=== PATIENT | female | born 1955 | race Caucasian/White ===

== ENCOUNTER 2018-11-12 12:10 | Inpatient (IN) | payer BC, OTHER ==
[~2018-11-12] VITALS: Ht 162.6 cm; Wt 84.0 kg
[~2018-11-12 12:10] MED LIST: ALEN70TA5 PO; CLOP75TA27 PO; DIPH1TAB25 PO; DOCU-144 PO; DULO30CA45 PO; GABA-528 PO; GLIM2TAB PO; GLIM4TAB PO; GLUC15006 PO; LATA2.5D2 BOTH EYES; LINA5TAB PO; LISI-471 PO; LOPE2CAP PO; METF-480 PO; METO5TAB2 PO; MILN50TA PO; OMEP20CA16 PO; ONDA4TAB8 PO
[2018-11-12] MEDS ORDERED: GABA-528 PO (13:31)
[2018-11-12] MEDS ORDERED: LOSA50TA14 PO (13:31)
[2018-11-12] MEDS ORDERED: MILN50TA PO (13:32)
[2018-11-12] MEDS ORDERED: ROPIVACAINE 0.5 % 30 ML VIAL ONE ×2 (14:03→16:01)
[2018-11-12] MEDS ORDERED: THROMBIN 5000 UNIT VIAL ONE ×3 (14:03→16:02)
[2018-11-12] MEDS ORDERED: GELATIN SIZE 100 SPONGE ONE ×2 (14:03→16:02)
[2018-11-12] MEDS ORDERED: SURGIFOAM POWDER 1 GM KIT ONE ×2 (14:03→16:01)
[2018-11-12] MEDS ORDERED: POLYMYXIN/BACITRACIN 1L IRRIG ONE ×2 (14:03→16:01)
[2018-11-12 14:11] VITALS: Ht 162.6 cm; Wt 84.0 kg
[2018-11-12 14:21] VITALS: BP 123/72; PULSE 70; RESP 16
--- NOTE | 2018-11-12 15:31 | PREAC ---
Date/Time of Note Date/Time of Note DATE: 11/12/18 TIME: 15:29 Anesthesia Eval and Record Evaluation Time Pre-Procedure Interview DATE: 11/12/18 TIME: 15:29 Age 63 Sex female NPO: 8 hrs Preoperative diagnosis back pain, s/p fusion Planned procedure Removal of HW, Laminectomy Past Medical History Past Medical History: Includes Cardio: HTN, Dyslipidemia Endo: Diabetes GI: GERD, Morbid obesity Surgery & Anesthesia Issues No known issue Meds Anticoagulation: Yes Beta Bakari within 24 hr: No Reason Beta Bakari not given: Pt. not on B-Bakari Reported Medications Milnacipran Hcl (Savella) 50 Mg Tablet, 50 MG PO BID, TAB 11/12/18 Losartan Potassium* (Losartan Potassium*) 50 Mg Tablet, 50 MG PO DAILY, TAB 11/12/18 Gabapentin* (Gabapentin*) 800 Mg Tablet, 800 MG PO DAILY, #90 TAB 11/12/18 Clopidogrel Bisulfate (Clopidogrel) 75 Mg Tablet, 75 MG PO DAILY, #30 TAB 02/28/18 Latanoprost (Latanoprost) 2.5 Ml Drops, 1 DROP BOTH EYES QHS, #1 BOTTLE 02/28/18 Omeprazole* (Omeprazole*) 20 Mg Capsule.dr, 20 MG PO AC BREAKFAST, #30 CAP 02/28/18 Metformin* (Glucophage*) 850 Mg Tablet, 850 MG PO WITH BREAKFAST DINNE, #60 TAB 02/28/18 Discontinued Reported Medications Glucosamine Hcl (Glucosamine Hcl) 1,500 Mg Tablet, 1500 MG PO, TAB 04/10/18 Duloxetine Hcl* (Cymbalta*) 30 Mg Capsule.dr, 30 MG PO DAILY, CAP 04/10/18 Linagliptin (TRADJENTA) 5 Mg Tablet, 5 MG PO DAILY, TAB 02/28/18 Glimepiride* (Glimepiride*) 2 Mg Tablet, 2 MG PO QPM, TAB 02/28/18 Docusate Sodium* (Colace*) 100 Mg Capsule, 100 MG PO DAILY, #30 CAP 02/28/18 Alendronate Sodium* (Fosamax*) 70 Mg Tablet, 70 MG PO Q7D, #4 TAB 02/28/18 Milnacipran Hcl ([place]) 50 Mg Tablet, 50 MG PO BID, TAB 02/28/18 Glimepiride* (Glimepiride*) 4 Mg Tablet, 4 MG PO QAM, TAB 02/28/18 Gabapentin* (Gabapentin*) 800 Mg Tablet, 800 MG PO BID, #90 TAB 02/28/18 Lisinopril* (Lisinopril*) 20 Mg Tablet, 20 MG PO DAILY, #30 TAB 02/28/18 Discontinued Scripts Ondansetron Hcl* (Zofran*) 4 Mg Tablet, 4 MG PO Q6H for NAUSEA AND/OR VOMITING, #20 TAB Prov:CURT HOYOS 04/23/18 Loperamide Hcl* (Imodium*) 2 Mg Capsule, 2 MG PO Q6H PRN for DIARRHEA, #20 CAP MAX 16 mg/day Prov:CURT HOYOS 04/23/18 Metoclopramide Hcl* (Metoclopramide Hcl*) 5 Mg Tablet, 5 MG PO Q6H PRN for NAUSEA AND/OR VOMITING, #20 TAB Prov:CURT HOYOS 04/23/18 Diphenoxylate HCl/Atropine (Diphenoxylate-Atrop 2.5-0.025) 1 Each Tablet, 1 TAB PO Q6 PRN for DIARRHEA, #14 TAB Prov:CURT HOYOS 04/23/18 Meds reviewed: Yes Allergies Coded Allergies: No Known Allergy (Unverified , 11/12/18) Allergies Reviewed: Yes Labs/Studies Labs Reviewed: Reviewed by anesthesiologist Blood Bank Test 11/12/18 14:00 Antibody Screen NEGATIVE Blood Type A POSITIVE test: N/A Studies: ECG Pre-procedure Exam Last vitals Vital Signs Date Temp Pulse Resp B/P (MAP) Pulse Ox O2 O2 Flow FiO2 Time Delivery Rate 11/12/18 97.3 70 16 123/72 98 Room Air 14:21 (89) Airway: Adequate mouth opening, Adequate thyromental dist Mallampati: Mallampati III Teeth: Normal Lung: Normal Heart: Normal ASA Physical Status ASA physical status: 3 Emergency: None Planned Anesthetic General/MAC: ETT Planned Pain Management Parenteral pain med Pre-operative Attestations Prior to commencing anesthesia and surgery, the patient was re-evaluated, there was verification of: *The patient's identity *The results of appropriate recent lab work and preoperative vital signs *The above evaluation not changing prior to induction *Anesthetic plan, risk benefits, alternative and complications discussed with patient/family; questions answered; patient/family understands, accepts and wishes to proceed. SARAH DURAN MD Nov 12, 2018 15:31
[2018-11-12] MEDS ORDERED: MIDAZOLAM 1 MG/ML 2 ML INJ ONE (17:39)
--- NOTE | 2018-11-12 18:17 | HPN ---
Date/Time of Note Date/Time of Note DATE: 11/12/18 TIME: 18:16 Interval H&P Admission Note Pt. seen H&P reviewed: No system changes Neurosurgery Update Extensive d/w patient about all available options including surgery vs no surgery. Overall risk/complications (3-5%) , and benefits about surgery thoroughly disc ussed. dispo: ICU overnight SANJAY LE MD Nov 12, 2018 18:17
[2018-11-12] MEDS ORDERED: DEXAMETHASONE 4 MG/ML 5 ML INJ ONE (19:16)
[2018-11-12] MEDS ORDERED: hydrALAzine 20 MG INJ ONE (19:43)
[2018-11-12] MEDS ORDERED: morphine 10 MG INJ ONE (20:23)
[2018-11-12] MEDS ORDERED: LIDOCAINE 2% (SDV) 5 ML INJ ONE (20:54)
[2018-11-12] MEDS ORDERED: ROCURONIUM 50 MG INJ ONE (20:54)
[2018-11-12] MEDS ORDERED: GLYCOPYRROLATE 0.4 MG INJ ONE (20:54)
[2018-11-12] MEDS ORDERED: ETOMIDATE 20 MG INJ ONE (20:54)
[2018-11-12] MEDS ORDERED: NEOSTIGMINE 3 MG/3 ML SYRINGE ONE (20:54)
[2018-11-12] MEDS ORDERED: CEFAZOLIN 1 GM INJ ONE (20:55)
[2018-11-12] MEDS ORDERED: ONDANSETRON 4 MG INJ ONE (20:56)
[2018-11-12] MEDS ORDERED: FENTAnyl 50 MCG/ML VIAL IV PRN (21:00)
[2018-11-12] MEDS ORDERED: ONDANSETRON 4 MG INJ IV PRN (21:00)
[2018-11-12] MEDS ORDERED: morphine 2 MG INJ IV PRN ×2 (21:00)
[2018-11-12] MEDS ORDERED: hydrALAzine 20 MG INJ IV PRN (21:00)
[2018-11-12] MEDS ORDERED: LABETALOL HCL 20MG INJ IV PRN (21:00)
[2018-11-12] MEDS ORDERED: DIPHENHYDRAMINE 50 MG INJ IV PRN (21:00)
[2018-11-12] MEDS ORDERED: MEPERIDINE 25 MG INJ IV PRN (21:00)
[2018-11-12] MEDS ORDERED: METOCLOPRAMIDE 10 MG INJ IV PRN (21:00)
--- NOTE | 2018-11-12 21:23 | OPPN ---
Date/Time of Note Date/Time of Note DATE: 11/12/18 TIME: 21:21 Operative Report Preoperative Diagnosis Right Lower Ext. Radiculopathy Postoperative Diagnosis Same Operation/Procedure Performed L2-S1 ISF Removal and Right L5-S1 decompression / es-laminectomy Surgeon see signature line department assistant MARILEE Heredia, ACNP-BC Anesthesia: general Estimated blood loss: 50 - 100 ml's Transfusion Required none Specimen 1. L2-S1 ISF Hardware 2. Right interbody screw tip 3. Bones and Ligaments Grafts/Implants none Complications none SANJAY LE MD Nov 12, 2018 21:23
[2018-11-12] MEDS ORDERED: AL HYDROX/MG HYDROX/SIMETH 30 ML CUP PO PRN (21:30)
[2018-11-12] MEDS ORDERED: NACL 0.9% 3 ML SYG IV SCH (21:30)
[2018-11-12] MEDS ORDERED: NALOXONE (0.4 MG/ML) INJ IV PRN (21:30)
[2018-11-12 21:36] VITALS: PULSE 95
--- NOTE | 2018-11-12 21:38 | PAC ---
Date/Time of Note Date/Time of Note DATE: 11/12/18 TIME: 21:38 Post-Anesthesia Notes Post-Anesthesia Note Last documented vital signs Vital Signs Date Temp Pulse Resp B/P (MAP) Pulse Ox O2 O2 Flow FiO2 Time Delivery Rate 11/12/18 97.3 70 16 123/72 98 Room Air 14:21 (89) Activity: WNL Respiratory function: WNL Cardiovascular function: WNL Mental status: Baseline Pain reasonably controlled: Yes Hydration appropriate: Yes Nausea/Vomiting absent: Yes Comments BP:126/67, P:78, Spo2:100%, T:98,8 SARAH DURAN MD Nov 12, 2018 21:38
[2018-11-12 22:00] VITALS: BP 114/81; PULSE 81; RESP 14
[2018-11-12] MEDS: ONDANSETRON 4 MG INJ IV PRN (22:19)
[2018-11-12 22:30] VITALS: BP 120/98; PULSE 78; RESP 16
[2018-11-12 23:00] VITALS: BP 114/69; PULSE 67; RESP 13
[2018-11-12 23:30] VITALS: BP 116/77; PULSE 71; RESP 12
[2018-11-12] MEDS: NS + KCL 20 MEQ 1,000 ML IV SCH (23:35)
[2018-11-12] MEDS: CEFAZOLIN 2 GM/50 ML (PMX) 50 ML IVPB SCH (23:35)
[2018-11-13] VITALS (33 sets, daily range): BP systolic 62–159; BP diastolic 46–87; PULSE 61–89; RESP 10–21
[2018-11-13] MEDS: HYDROCODONE/APAP (5/325) TAB PO PRN ×3 (04:23→17:32)
[2018-11-13] MEDS: ONDANSETRON 4 MG INJ IV PRN (04:57)
[2018-11-13] MEDS: CEFAZOLIN 2 GM/50 ML (PMX) 50 ML IVPB SCH ×3 (06:24→21:37)
[2018-11-13] MEDS: NS + KCL 20 MEQ 1,000 ML IV SCH ×3 (09:21→20:28)
--- NOTE | 2018-11-13 11:08 | PN ---
Date/Time of Note Date/Time of Note DATE: 11/13/18 TIME: 11:05 Assessment/Plan VTE Prophylaxis SCD applied (from Nsg): Yes SCD contraindicated: low risk/ambulating Pharmacological prophylaxis: NA/contraindicated Pharm contraindication: low risk/ambulating Lines/Catheters IV Catheter Type (from Nrsg): A Line Central line still needed: No Urinary Cath still in place: No Assessment/Plan Assessment/Plan Neurosurgery s/p posterior L2-S1 ISF removal with right L5-S1 decompression with shaving of S1 screw initr-op neuromonitoring showed improvement in L5-s1 signal surgical site: CDI post op CT Lspine reviewed and noted improving right leg numbness/tingling pt states that she is able to straighten her right toe now Plan cont marcela for 2-3 more days brace when oob IS x [address] Alexander's group for medical management Result Diagram: 11/13/18 0435 11/13/18 0435 Results 24hrs Laboratory Tests Test 11/12/18 13:51 11/13/18 04:35 11/13/18 05:03 Bedside Glucose 97 Hemoglobin 8.6 L Hematocrit 27.1 L Sodium Level 141 Potassium Level 4.4 Chloride Level 111 H Carbon Dioxide Level 22 Anion Gap 8 Blood Urea Nitrogen 14 Creatinine 0.51 Est Glomerular Filtrat Rate mL/min > 60 Glucose Level 235 H Calcium Level 8.2 L Lab Scanned Report REFERENCE LAB Subjective 24 Hr Interval Summary Free Text/Dictation Neurosurgery S: s/p Posterior L2-S1 ISF removal with right L5-S1 decompression with shaving of S1 screw intra-op monitoring shows improvement in L5 & S1 Nerve root daughter at bedside and states significant improvement in right lower extremity numbness/tingling pt states per daughter "I can now straighten my right toe" Exam/Review of Systems Exam Vitals Vital Signs Date Temp Pulse Resp B/P (MAP) Pulse Ox O2 O2 Flow FiO2 Time Delivery Rate 11/13/18 80 18 98 09:15 11/13/18 83/66 (72) 09:00 11/13/18 98.3 Room Air 08:00 11/13/18 2.0 02:00 Intake and Output 11/12/18 11/12/18 11/13/18 1515:00 23:00 07:00 IntakeIntake Total 1500 ml 750 ml OutputOutput Total 100 ml 850 ml 1170 ml BalanceBalance 1400 ml -850 ml -420 ml Neurological: other (MS: AAOX3 CN: PERRL M: 5/5 strength x 4 , no focal def S: improving right radic L5-s1 Surgical site: CDI, MARCELA with moderate output ) Results Results 24hrs Laboratory Tests Test 11/12/18 13:51 11/13/18 04:35 11/13/18 05:03 Bedside Glucose 97 Hemoglobin 8.6 L Hematocrit 27.1 L Sodium Level 141 Potassium Level 4.4 Chloride Level 111 H Carbon Dioxide Level 22 Anion Gap 8 Blood Urea Nitrogen 14 Creatinine 0.51 Est Glomerular Filtrat Rate mL/min > 60 Glucose Level 235 H Calcium Level 8.2 L Lab Scanned Report REFERENCE LAB Medications Medication Current Medications Acetaminophen/ Hydrocodone Bitart ([place] (5/325)) 1 tab Q4H PRN PO .PAIN 1-5 Last administered on 11/13/18at 10:41; Admin Dose 1 TAB; Start 11/12/18 at 21:30 Ondansetron HCl (Zofran Inj) 4 mg Q6H PRN IV NAUSEA/VOMITING Last administered on 11/13/18at 04:57; Admin Dose 4 MG; Start 11/12/18 at 21:30 Al Hydrox/Mg Hydrox/Simethicone (Mag-Al Plus) 15 ml Q4H PRN PO .CONSTIPATION; Start 11/12/18 at 21:30 IV Flush (NS 3 ml) 3 ml PER PROTOCOL IV ; Start 11/12/18 at 21:30 Naloxone HCl (Narcan) 0.2 mg Q2M PRN IV RR 8 BREATHS/MIN OR LESS; Start 11/12/18 at 21:30 Potassium Chloride/Sodium Chloride 1,000 ml @ 100 mls/hr Q10H IV Last administered on 11/13/18at 09:21; Admin Dose 100 MLS/HR; Start 11/12/18 at 21:30; Stop 11/13/18 at 21:30 Cefazolin Sodium/ Dextrose 50 ml @ 100 mls/hr Q8 IVPB Last administered on 11/13/18at 06:24; Admin Dose 100 MLS/HR; Start 11/12/18 at 22:00; Stop 11/14/18 at 22:00 BRETNON VILLARREAL NP Nov 13, 2018 11:08
[2018-11-13] MEDS: HYDROmorphONE 1 MG/ML SYG IV PRN ×2 (19:55→23:59)
[2018-11-14] VITALS (19 sets, daily range): BP systolic 85–136; BP diastolic 48–71; PULSE 65–98; RESP 13–25
[2018-11-14] MEDS: ONDANSETRON 4 MG INJ IV PRN ×3 (00:13→15:09)
[2018-11-14] MEDS: HYDROCODONE/APAP (5/325) TAB PO PRN ×4 (04:25→20:45)
[2018-11-14] MEDS: CEFAZOLIN 2 GM/50 ML (PMX) 50 ML IVPB SCH ×3 (05:33→21:50)
[2018-11-14] MEDS: HYDROmorphONE 1 MG/ML SYG IV PRN ×4 (08:44→21:49)
--- NOTE | 2018-11-14 11:04 | QN ---
Documentation Comment Neuro sx CREPE MAKER notified regarding patient's leaking TIM. Also RN was commanded to notify Dr Osuna as well. CURT HOYOS Nov 14, 2018 11:04
[2018-11-14] MEDS ORDERED: MAGNESIUM SULFATE 2 GM/50 ML 50 ML IVPB ONE (13:00)
--- NOTE | 2018-11-14 13:03 | CONS ---
Assessment/Plan Assessment/Plan Hospital Course (Demo Recall) PVCs Preserved left ventricular ejection fraction Status post spinal surgery Diabetes Hypertension Obesity History of TIA Patient with occasional PVCs noted on telemetry and remains asymptomatic Echocardiogram February 2018 with preserved left ventricular ejection fraction Labs just obtained with low magnesium level, would supplement Would ideally maintain potassium above 4.0 and magnesium above 2.0 Consultation Date/Type/Reason Admit Date/Time Nov 12, 2018 at 13:09 Type of Consult Cardiology Reason for Consultation PVCs Date/Time of Note DATE: 11/14/18 TIME: 13:01 Hx of Present Illness This is a 63-year-old female known to me from previous admission who underwent e lective spinal surgery. Patient noted afterwards to have PVCs and for this reason cardiology condition was requested. Patient is having significant back pain. She denies any shortness of breath, chest pain, palpitations or dizziness. Family tells me she has a history of hypertension, does take Plavix for TIA but has been off secondary to her recent surgery. 12 point review of systems was performed with all pertinent positives and negatives mentioned above and all else is negative Past Medical History TIA Medical History: diabetes, hypertension Home Meds Reported Medications Milnacipran Hcl (Savella) 50 Mg Tablet, 50 MG PO BID, TAB 11/12/18 Losartan Potassium* (Losartan Potassium*) 50 Mg Tablet, 50 MG PO DAILY, TAB 11/12/18 Gabapentin* (Gabapentin*) 800 Mg Tablet, 800 MG PO DAILY, #90 TAB 11/12/18 Clopidogrel Bisulfate (Clopidogrel) 75 Mg Tablet, 75 MG PO DAILY, #30 TAB 02/28/18 Latanoprost (Latanoprost) 2.5 Ml Drops, 1 DROP BOTH EYES QHS, #1 BOTTLE 02/28/18 Omeprazole* (Omeprazole*) 20 Mg Capsule.dr, 20 MG PO AC BREAKFAST, #30 CAP 02/28/18 Metformin* (Glucophage*) 850 Mg Tablet, 850 MG PO WITH BREAKFAST DINNE, #60 TAB 02/28/18 Discontinued Reported Medications Glucosamine Hcl (Glucosamine Hcl) 1,500 Mg Tablet, 1500 MG PO, TAB 04/10/18 Duloxetine Hcl* (Cymbalta*) 30 Mg Capsule.dr, 30 MG PO DAILY, CAP 04/10/18 Linagliptin (TRADJENTA) 5 Mg Tablet, 5 MG PO DAILY, TAB 02/28/18 Glimepiride* (Glimepiride*) 2 Mg Tablet, 2 MG PO QPM, TAB 02/28/18 Docusate Sodium* (Colace*) 100 Mg Capsule, 100 MG PO DAILY, #30 CAP 02/28/18 Alendronate Sodium* (Fosamax*) 70 Mg Tablet, 70 MG PO Q7D, #4 TAB 02/28/18 Milnacipran Hcl (Savella) 50 Mg Tablet, 50 MG PO BID, TAB 02/28/18 Glimepiride* (Glimepiride*) 4 Mg Tablet, 4 MG PO QAM, TAB 02/28/18 Gabapentin* (Gabapentin*) 800 Mg Tablet, 800 MG PO BID, #90 TAB 02/28/18 Lisinopril* (Lisinopril*) 20 Mg Tablet, 20 MG PO DAILY, #30 TAB 02/28/18 Discontinued Scripts Ondansetron Hcl* (Zofran*) 4 Mg Tablet, 4 MG PO Q6H for NAUSEA AND/OR VOMITING, #20 TAB Prov:CURT HOYOS 04/23/18 Loperamide Hcl* (Imodium*) 2 Mg Capsule, 2 MG PO Q6H PRN for DIARRHEA, #20 CAP MAX 16 mg/day Prov:CURT HOYOS 04/23/18 Metoclopramide Hcl* (Metoclopramide Hcl*) 5 Mg Tablet, 5 MG PO Q6H PRN for NAUSEA AND/OR VOMITING, #20 TAB Prov:CURT HOYOS 04/23/18 Diphenoxylate HCl/Atropine (Diphenoxylate-Atrop 2.5-0.025) 1 Each Tablet, 1 TAB PO Q6 PRN for DIARRHEA, #14 TAB Prov:CURT HOYOS 04/23/18 Medications Current Medications Acetaminophen/ Hydrocodone Bitart ([place] (5/325)) 1 tab Q4H PRN PO .PAIN 1-5 Last administered on 11/14/18at 11:13; Admin Dose 1 TAB; Start 11/12/18 at 21:30 Ondansetron HCl (Zofran Inj) 4 mg Q6H PRN IV NAUSEA/VOMITING Last administered on 11/14/18at 08:44; Admin Dose 4 MG; Start 11/12/18 at 21:30 Al Hydrox/Mg Hydrox/Simethicone (Mag-Al Plus) 15 ml Q4H PRN PO .CONSTIPATION; Start 11/12/18 at 21:30 IV Flush (NS 3 ml) 3 ml PER PROTOCOL IV ; Start 11/12/18 at 21:30 Naloxone HCl (Narcan) 0.2 mg Q2M PRN IV RR 8 BREATHS/MIN OR LESS; Start 11/12/18 at 21:30 Cefazolin Sodium/ Dextrose 50 ml @ 100 mls/hr Q8 IVPB Last administered on 11/14/18at 05:33; Admin Dose 100 MLS/HR; Start 11/12/18 at 22:00; Stop 11/14/18 at 22:00 Hydromorphone HCl (Dilaudid) 1 mg Q3H PRN IV SEVERE PAIN LEVEL 7-10 Last administered on 11/14/18at 11:46; Admin Dose 1 MG; Start 11/13/18 at 20:00 Allergies: Coded Allergies: No Known Allergy (Unverified , 11/12/18) Past Surgical History Spinal surgery Past Surgical Hx: other Social History Smoking Status: Never smoker Exam/Review of Systems Vital Signs Vitals Vital Signs Date Temp Pulse Resp B/P (MAP) Pulse Ox O2 O2 Flow FiO2 Time Delivery Rate 11/14/18 67 08:00 11/14/18 20 119/67 97 Room Air 06:00 (84) 11/14/18 98.2 04:00 11/13/18 2.0 02:00 Intake and Output 11/13/18 11/13/18 11/14/18 1515:00 23:00 07:00 IntakeIntake Total 1330 ml 890 ml 110 ml OutputOutput Total 960 ml 885 ml 840 ml BalanceBalance 370 ml 5 ml -730 ml Exam Constitutional: alert, oriented (Laying on her side, appears uncomfortable, family bedside) Head: normocephalic Respiratory: other (Coarse breath sounds bilaterally, no wheezing) Cardiovascular: regular rate and rhythm (S1-S2 heard) Gastrointestinal: soft, non-tender, bowel sounds Extremities: edema (Trace) Labs Result Diagram: 11/14/18 1145 11/14/18 1145 Results 24hrs Laboratory Tests Test 11/13/18 17:36 11/14/18 11:45 Bedside Glucose 144 White Blood Count 6.8 # Red Blood Count 3.28 L Hemoglobin 8.5 L Hematocrit 27.3 L Mean Corpuscular Volume 83.2 Mean Corpuscular Hemoglobin 25.9 L Mean Corpuscular Hemoglobin Concent 31.1 L Red Cell Distribution Width 14.3 # Platelet Count 247 Mean Platelet Volume 9.4 Immature Granulocytes % 0.300 Neutrophils % 61.6 Lymphocytes % 30.2 Monocytes % 6.9 Eosinophils % 0.7 Basophils % 0.3 Nucleated Red Blood Cells % 0.0 Immature Granulocytes # 0.020 Neutrophils # 4.2 Lymphocytes # 2.1 Monocytes # 0.5 Eosinophils # 0.1 Basophils # 0.0 Nucleated Red Blood Cells # 0.0 Sodium Level 144 Potassium Level 4.1 Chloride Level 110 Carbon Dioxide Level 26 Anion Gap 8 Blood Urea Nitrogen 12 Creatinine 0.72 Est Glomerular Filtrat Rate mL/min > 60 Glucose Level 206 Calcium Level 8.8 Phosphorus Level 2.1 L Magnesium Level 1.8 Total Bilirubin 0.3 Direct Bilirubin 0.00 Indirect Bilirubin 0.3 Aspartate Amino Transf (AST/SGOT) 16 Alanine Aminotransferase (ALT/SGPT) 19 Alkaline Phosphatase 91 Total Protein 7.0 Albumin 3.5 Globulin 3.50 H Albumin/Globulin Ratio 1.00 Medications Medications Current Medications Acetaminophen/ Hydrocodone Bitart ([place] (5/325)) 1 tab Q4H PRN PO .PAIN 1-5 Last administered on 11/14/18at 11:13; Admin Dose 1 TAB; Start 11/12/18 at 21:30 Ondansetron HCl (Zofran Inj) 4 mg Q6H PRN IV NAUSEA/VOMITING Last administered on 11/14/18at 08:44; Admin Dose 4 MG; Start 11/12/18 at 21:30 Al Hydrox/Mg Hydrox/Simethicone (Mag-Al Plus) 15 ml Q4H PRN PO .CONSTIPATION; Start 11/12/18 at 21:30 IV Flush (NS 3 ml) 3 ml PER PROTOCOL IV ; Start 11/12/18 at 21:30 Naloxone HCl (Narcan) 0.2 mg Q2M PRN IV RR 8 BREATHS/MIN OR LESS; Start 11/12/18 at 21:30 Cefazolin Sodium/ Dextrose 50 ml @ 100 mls/hr Q8 IVPB Last administered on 11/14/18at 05:33; Admin Dose 100 MLS/HR; Start 11/12/18 at 22:00; Stop 11/14/18 at 22:00 Hydromorphone HCl (Dilaudid) 1 mg Q3H PRN IV SEVERE PAIN LEVEL 7-10 Last administered on 11/14/18at 11:46; Admin Dose 1 MG; Start 11/13/18 at 20:00 Cole Pressley DO Nov 14, 2018 13:03
--- NOTE | 2018-11-14 15:20 | HP ---
Date/Time of Note Date/Time of Note DATE: 11/14/18 TIME: 14:54 Assessment/Plan VTE Prophylaxis Risk score (from Ns)>0 risk: 12 SCD applied (from [facility]): No SCD contraindicated: other Pharmacological prophylaxis: other Pharm contraindication: other Lines/Catheters IV Catheter Type (from Nrsg): A Line Central line still needed: Yes Urinary Cath still in place: Yes Reason Cath still needed: urinary retention Assessment/Plan Assessment/Plan -SP L2-S1 ISF Removal and Right L5-S1 decompression / es-laminectomy; improving right leg numbness/tingling - Admit to ICU - per neuro surgeon recommendations - Pain control - PT as tolerated- with back brace -Right Lower Ext. Radiculopathy - cont to monitor - Hypertension - Hypotension to SBP 119. - will resume Cozzar in am - Diabetes - Glycemic control Patient seen in collaboration with Dr Alexander. staff. Result Diagram: 11/14/18 1145 11/14/18 1145 Results 24hrs Laboratory Tests Test 11/13/18 17:36 11/14/18 11:45 Bedside Glucose 144 White Blood Count 6.8 # Red Blood Count 3.28 L Hemoglobin 8.5 L Hematocrit 27.3 L Mean Corpuscular Volume 83.2 Mean Corpuscular Hemoglobin 25.9 L Mean Corpuscular Hemoglobin Concent 31.1 L Red Cell Distribution Width 14.3 # Platelet Count 247 Mean Platelet Volume 9.4 Immature Granulocytes % 0.300 Neutrophils % 61.6 Lymphocytes % 30.2 Monocytes % 6.9 Eosinophils % 0.7 Basophils % 0.3 Nucleated Red Blood Cells % 0.0 Immature Granulocytes # 0.020 Neutrophils # 4.2 Lymphocytes # 2.1 Monocytes # 0.5 Eosinophils # 0.1 Basophils # 0.0 Nucleated Red Blood Cells # 0.0 Sodium Level 144 Potassium Level 4.1 Chloride Level 110 Carbon Dioxide Level 26 Anion Gap 8 Blood Urea Nitrogen 12 Creatinine 0.72 Est Glomerular Filtrat Rate mL/min > 60 Glucose Level 206 Calcium Level 8.8 Phosphorus Level 2.1 L Magnesium Level 1.8 Total Bilirubin 0.3 Direct Bilirubin 0.00 Indirect Bilirubin 0.3 Aspartate Amino Transf (AST/SGOT) 16 Alanine Aminotransferase (ALT/SGPT) 19 Alkaline Phosphatase 91 Total Protein 7.0 Albumin 3.5 Globulin 3.50 H Albumin/Globulin Ratio 1.00 HPI/ROS Admit Date/Time Admit Date/Time Nov 12, 2018 at 13:09 ROS This is a 63 years old female patient with history of hypertensin, Diabetes, RLE rediculopathy is admitted sp -SP L2-S1 ISF Removal and Right L5-S1 decompression / es-laminectomy by Dr Osuna. Patient has Hx RLE neuropathy. Patient states that her right leg numbness/tingling is improving now. Patient c/o lower back pain; TIM noted/leaking- neuro REGISTERED NURSE STEP DOWN aware. Patient denies any shortness of breath/ chest pain /palpitations/ dizziness/ fever/headache/ blurry vision/ abdominal pain nausea/vomitting. Daughter at bed side- all Qs answered.. Plan of care dw daughter, patient, and staff. Patient is admitted in ICU for further treatment and evaluation. Patient is admitted under Dr Alexander Eyes: no complaints ENT: no complaints Respiratory: no complaints Cardiovascular: no complaints Gastrointestinal: no complaints Genitourinary: no complaints Musculoskeletal: restricted range of motion Skin: no complaints Neurologic: focal-weakness (RLE weakness; better than before) Endocrine: no complaints Psychological: nl mood/affect Immunologic: no complaints PMH/Family/Social Past Medical History Medical History: diabetes, hypertension, other (Ectopic ) Medications Current Medications Acetaminophen/ Hydrocodone Bitart ([place] (5/325)) 1 tab Q4H PRN PO .PAIN 1-5 Last administered on 11/14/18at 11:13; Admin Dose 1 TAB; Start 11/12/18 at 21:30 Ondansetron HCl (Zofran Inj) 4 mg Q6H PRN IV NAUSEA/VOMITING Last administered on 11/14/18at 08:44; Admin Dose 4 MG; Start 11/12/18 at 21:30 Al Hydrox/Mg Hydrox/Simethicone (Mag-Al Plus) 15 ml Q4H PRN PO .CONSTIPATION; Start 11/12/18 at 21:30 IV Flush (NS 3 ml) 3 ml PER PROTOCOL IV ; Start 11/12/18 at 21:30 Naloxone HCl (Narcan) 0.2 mg Q2M PRN IV RR 8 BREATHS/MIN OR LESS; Start 11/12/18 at 21:30 Cefazolin Sodium/ Dextrose 50 ml @ 100 mls/hr Q8 IVPB Last administered on 11/14/18at 05:33; Admin Dose 100 MLS/HR; Start 11/12/18 at 22:00; Stop 11/14/18 at 22:00 Hydromorphone HCl (Dilaudid) 1 mg Q3H PRN IV SEVERE PAIN LEVEL 7-10 Last a dministered on 11/14/18at 11:46; Admin Dose 1 MG; Start 11/13/18 at 20:00 Magnesium Sulfate 50 ml @ 25 mls/hr ONCE ONCE IVPB Last administered on 11/14/18at 13:00; Admin Dose 25 MLS/HR; Start 11/14/18 at 13:00; Stop 11/14/18 at 14:59 Coded Allergies: No Known Allergy (Unverified , 11/12/18) Past Surgical History Past Surgical Hx: other (Lower back unneaked wound) Family History Significant Family History: no pertinent family hx Social History Alcohol Use: none Smoking Status: Never smoker Drug Use: cocaine Exam/Review of Systems Vital Signs Vitals Vital Signs Date Temp Pulse Resp B/P (MAP) Pulse Ox O2 O2 Flow FiO2 Time Delivery Rate 11/14/18 73 12:00 11/14/18 20 119/67 97 Room Air 06:00 (84) 11/14/18 98.2 04:00 11/13/18 2.0 02:00 Intake and Output 11/13/18 11/13/18 11/14/18 1515:00 23:00 07:00 IntakeIntake Total 1330 ml 890 ml 110 ml OutputOutput Total 960 ml 885 ml 840 ml BalanceBalance 370 ml 5 ml -730 ml Exam Constitutional: alert, well developed Psych: nl mood/affect Head: normocephalic Eyes: nl lids, nl sclera ENMT: nl external ears & nose Neck: non-tender Respiratory: clear to auscultation Cardiovascular: nl pulses Gastrointestinal: soft, non-tender Musculoskeletal: nl extremities to inspection Extremities: normal pulses Neurological: nl mental status, nl speech Skin: other (sp lower back sx; TIM noted/leaking- neuro REGISTERED NURSE STEP DOWN aware) Lymph: nontender CURT HOYOS Nov 14, 2018 15:07
[2018-11-14] MEDS ORDERED: GLUCOSE GEL 15 GRAM TUBE PO PRN ×2 (15:30)
[2018-11-14] MEDS ORDERED: GLUCAGON 1 MG INJ IM PRN (15:30)
[2018-11-14] MEDS ORDERED: DEXTROSE 50% 50 ML SYRINGE IV PRN ×2 (15:30)
[2018-11-14] MEDS ORDERED: GLUCOSE GEL 15 GRAM TUBE BUCCAL PRN (15:30)
[2018-11-14] MEDS: INSULIN ASPART [NOVOLOG] 3 ML PEN SC SCH (17:05)
[2018-11-14] MEDS: GABAPENTIN 400 MG CAP PO SCH ×2 (17:52→22:36)
--- NOTE | 2018-11-14 18:44 | RADRPT ---
Vent Rate: 66 bpm RR Interval: 908 msec MN Interval: 120 msec QRS Duration: 78 msec QT Interval: 384 msec QTC Interval: 403 msec P-R-T [place]: 58 - 96 - 58 degrees Sinus rhythm...normal P axis, V-rate 50- 99 Right axis deviation...QRS axis ( 91,269) Low voltage, precordial leads...precordial leads <1.0mV Electronically Signed By: Cole Pressley
[2018-11-14] MEDS: LATANOPROST 0.005% 2.5 ML OPH BOTH EYES SCH (21:57)
[2018-11-15] MEDS: HYDROCODONE/APAP (5/325) TAB PO PRN ×3 (01:34→19:02)
[2018-11-15] MEDS: ACCU-CHEK XX SCH (02:00)
[2018-11-15 07:20] VITALS: BP 121/64; PULSE 74; RESP 16
[2018-11-15] MEDS: PANTOPRAZOLE (EC) 40 MG TAB PO SCH (07:20)
[2018-11-15] MEDS: GABAPENTIN 400 MG CAP PO SCH ×2 (08:45→20:42)
[2018-11-15] MEDS: INSULIN ASPART [NOVOLOG] 3 ML PEN SC SCH ×3 (08:47→18:55)
[2018-11-15] MEDS ORDERED: GABAPENTIN 400 MG CAP PO SCH (09:00)
--- NOTE | 2018-11-15 10:58 | CONS ---
Assessment/Plan Assessment/Plan Assessment/Plan (Daily) PVCs Preserved left ventricular ejection fraction Status post spinal surgery Diabetes Hypertension Obesity History of TIA Patient with occasional PVCs noted on telemetry and remains asymptomatic Echocardiogram February 2018 with preserved left ventricular ejection fraction s/p magnesium yesterday Would ideally maintain potassium above 4.0 and magnesium above 2.0 Consultation Date/Type/Reason Admit Date/Time Nov 12, 2018 at 13:09 Initial Consult Date Type of Consult Cardiology Date/Time of Note DATE: 11/15/18 TIME: 10:58 24 HR Interval Summary Free Text/Dictation the patient stable overnight Exam/Review of Systems Vital Signs Vitals Vital Signs Date Temp Pulse Resp B/P (MAP) Pulse Ox O2 O2 Flow FiO2 Time Delivery Rate 11/15/18 98.6 74 16 121/64 98 Room Air 07:20 (83) 11/13/18 2.0 02:00 Intake and Output 11/14/18 11/14/18 11/15/18 1515:00 23:00 07:00 IntakeIntake Total 800 ml 290 ml 250 ml OutputOutput Total 820 ml 390 ml 700 ml BalanceBalance -20 ml -100 ml -450 ml Labs Result Diagram: 11/15/18 0433 11/15/18 0433 Results 24hrs Laboratory Tests Test 11/14/18 11:45 11/15/18 04:33 11/15/18 08:42 White Blood Count 6.8 # 6.4 Red Blood Count 3.28 L 3.25 L Hemoglobin 8.5 L 8.4 L Hematocrit 27.3 L 26.8 L Mean Corpuscular Volume 83.2 82.5 Mean Corpuscular Hemoglobin 25.9 L 25.8 L Mean Corpuscular Hemoglobin Concent 31.1 L 31.3 L Red Cell Distribution Width 14.3 # 14.0 Platelet Count 247 220 Mean Platelet Volume 9.4 10.3 Immature Granulocytes % 0.300 0.200 Neutrophils % 61.6 50.2 Lymphocytes % 30.2 37.7 Monocytes % 6.9 8.8 Eosinophils % 0.7 2.8 Basophils % 0.3 0.3 Nucleated Red Blood Cells % 0.0 0.0 Immature Granulocytes # 0.020 0.010 Neutrophils # 4.2 3.2 Lymphocytes # 2.1 2.4 Monocytes # 0.5 0.6 Eosinophils # 0.1 0.2 Basophils # 0.0 0.0 Nucleated Red Blood Cells # 0.0 0.0 Sodium Level 144 142 Potassium Level 4.1 3.7 Chloride Level 110 109 Carbon Dioxide Level 26 25 Anion Gap 8 8 Blood Urea Nitrogen 12 12 Creatinine 0.72 0.62 Est Glomerular Filtrat Rate mL/min > 60 > 60 Glucose Level 206 148 # Calcium Level 8.8 8.2 L Phosphorus Level 2.1 L Magnesium Level 1.8 Total Bilirubin 0.3 0.4 Direct Bilirubin 0.00 0.00 Indirect Bilirubin 0.3 0.4 Aspartate Amino Transf (AST/SGOT) 16 18 Alanine Aminotransferase (ALT/SGPT) 19 18 Alkaline Phosphatase 91 91 Total Protein 7.0 7.0 Albumin 3.5 3.4 Globulin 3.50 H 3.60 H Albumin/Globulin Ratio 1.00 0.94 Bedside Glucose 150 Medications Medications Current Medications Acetaminophen/ Hydrocodone Bitart ([place] (5/325)) 1 tab Q4H PRN PO .PAIN 1-5 Last administered on 11/15/18 07:20; Admin Dose 1 TAB; Start 11/12/18 at 21:30 Ondansetron HCl (Zofran Inj) 4 mg Q6H PRN IV NAUSEA/VOMITING Last administered on 11/14/18 15:09; Admin Dose 4 MG; Start 11/12/18 at 21:30 Al Hydrox/Mg Hydrox/Simethicone (Mag-Al Plus) 15 ml Q4H PRN PO .CONSTIPATION Last administered on 11/14/18 17:51; Admin Dose 15 ML; Start 11/12/18 at 21:30 IV Flush (NS 3 ml) 3 ml PER PROTOCOL IV ; Start 11/12/18 at 21:30 Naloxone HCl (Narcan) 0.2 mg Q2M PRN IV RR 8 BREATHS/MIN OR LESS; Start 11/12/18 at 21:30 Hydromorphone HCl (Dilaudid) 1 mg Q3H PRN IV SEVERE PAIN LEVEL 7-10 Last administered on 11/14/18 21:49; Admin Dose 1 MG; Start 11/13/18 at 20:00 Latanoprost (Xalatan) 1 drop QHS BOTH EYES Last administered on 11/14/18 21:57; Admin Dose 1 DROP; Start 11/14/18 at 21:00 Pantoprazole (Protonix Tab) 40 mg DAILY@06 PO Last administered on 11/15/18at 07:20; Admin Dose 40 MG; Start 11/15/18 at 06:00 Gabapentin (Neurontin) 400 mg BID PO Last administered on 11/15/18at 08:45; Admin Dose 400 MG; Start 11/14/18 at 15:30 Diagnostic Test (Pha) (Accu-Chek) 1 ea 02 XX ; Start 11/15/18 at 02:00 Insulin Aspart (Novolog Insulin Pen) NOVOLOG *MILD* ALGORI... AC MEALS SC Last administered on 11/15/18at 08:47; Admin Dose 1 UNIT; Start 11/14/18 at 17:05 Miscellaneous Information 1 ea NOTE XX ; Start 11/14/18 at 15:30 Glucose (Glutose) 15 gm Q15M PRN PO DECREASED GLUCOSE; Start 11/14/18 at 15:30 Glucose (Glutose) 22.5 gm Q15M PRN PO DECREASED GLUCOSE; Start 11/14/18 at 15:30 Dextrose (D50w Syringe) 25 ml Q15M PRN IV DECREASED GLUCOSE; Start 11/14/18 at 15:30 Dextrose (D50w Syringe) 50 ml Q15M PRN IV DECREASED GLUCOSE; Start 11/14/18 at 15:30 Glucagon (Glucagen) 1 mg Q15M PRN IM DECREASED GLUCOSE; Start 11/14/18 at 15:30 Glucose (Glutose) 15 gm Q15M PRN BUCCAL DECREASED GLUCOSE; Start 11/14/18 at 15:30 ALEXIS NORRIS MD Nov 15, 2018 10:58
[2018-11-15] MEDS ORDERED: LOSARTAN 50 MG TAB PO SCH (11:00)
[2018-11-15] MEDS ORDERED: MILNACIPRAN HCL 50 MG PO SCH (11:00)
--- NOTE | 2018-11-15 11:24 | PN ---
DATE: 11/15/2018 SUBJECTIVE: The patient is complaining of increasing numbness right lower extremity. The patient is able to move right lower extremity The patient remains awake, alert. Denies any chest pain or abdominal pain. No reported vomiting, no reported temperature spike. PHYSICAL EXAMINATION: GENERAL: The patient is awake, alert. VITAL SIGNS: Temperature 98.6, pulse 74, respiration rate 16, blood pressure 121/64, O2 saturation 96% on room air. HEENT: No eye discharge or redness. NECK: No mass. CHEST: Fairly clear. CARDIOVASCULAR: S1, S2 normal, no murmur. ABDOMEN: Soft, nontender. EXTREMITIES: No pedal edema. Pedal pulses palpable. Decreased sensation in the right lower extremity. Able to move RLE LABORATORY DATA: Done this morning, WBC 6.4, hemoglobin 8.4, platelet 220. Sodium 142, potassium 3.7, BUN 12, creatinine 0.6, glucose 150. Liver enzymes normal. IMPRESSION: 1. Increased right lower extremity numbness. I spoke with London Elmore regarding patient's condition. He recommended to order a stat lumbar spine CT. 2. Diabetes. We will start metformin. Continue sliding scale. 3. Hypertension. We will resume Cozaar, but will reduce the dose to 25 mg since blood pressure readings are within normal range. The patient also complaining of constipation. Will add Senokot, Dulcolax p.r.n. Plan of care discussed with the patient's daughter, and the patient's nurse, Lindsay. Dictated By: LARRY RIVAS/ANNALISA Conf#: [id number] DID#: [id number] CC: SANJAY LE MD;*EndCC* MTDD
[2018-11-15] MEDS: HYDROmorphONE 1 MG/ML SYG IV PRN ×2 (11:30→16:40)
[2018-11-15] MEDS ORDERED: BISACODYL (EC) 5 MG TAB PO PRN (11:30)
[2018-11-15] MEDS: SENNA TAB PO SCH ×2 (11:38→20:42)
[2018-11-15 14:41] VITALS: BP 104/62; PULSE 79; RESP 18
--- NOTE | 2018-11-15 15:58 | PN ---
Date/Time of Note Date/Time of Note DATE: 11/15/18 TIME: 15:56 Assessment/Plan VTE Prophylaxis Risk score (from Ns)>0 risk: 7 SCD applied (from Ns): Yes SCD contraindicated: low risk/ambulating Pharmacological prophylaxis: NA/contraindicated Pharm contraindication: low risk/ambulating Lines/Catheters IV [facility]from [facility] Saline Lock Central line still needed: No Urinary Cath still in place: No Assessment/Plan Assessment/Plan Neurosurgery Update Patient seen and examined OOB with PT/OT earlier today and pt c/o increasing numbness/tingling to right foot CT Lspine reviewed and noted MARCELA drain in place surgical site:CDI Plan will obtain MRI Lspine w/wo contrast to further evaluate neuroforaminal cont marcela for now decadron and resume neurontin hold pt/ot for now until mri completed Result Diagram: 11/15/18 0433 11/15/18 0433 Results 24hrs Laboratory Tests Test 11/15/18 04:33 11/15/18 08:42 11/15/18 12:35 White Blood Count 6.4 Red Blood Count 3.25 L Hemoglobin 8.4 L Hematocrit 26.8 L Mean Corpuscular Volume 82.5 Mean Corpuscular Hemoglobin 25.8 L Mean Corpuscular Hemoglobin Concent 31.3 L Red Cell Distribution Width 14.0 Platelet Count 220 Mean Platelet Volume 10.3 Immature Granulocytes % 0.200 Neutrophils % 50.2 Lymphocytes % 37.7 Monocytes % 8.8 Eosinophils % 2.8 Basophils % 0.3 Nucleated Red Blood Cells % 0.0 Immature Granulocytes # 0.010 Neutrophils # 3.2 Lymphocytes # 2.4 Monocytes # 0.6 Eosinophils # 0.2 Basophils # 0.0 Nucleated Red Blood Cells # 0.0 Sodium Level 142 Potassium Level 3.7 Chloride Level 109 Carbon Dioxide Level 25 Anion Gap 8 Blood Urea Nitrogen 12 Creatinine 0.62 Est Glomerular Filtrat Rate mL/min > 60 Glucose Level 148 # Calcium Level 8.2 L Total Bilirubin 0.4 Direct Bilirubin 0.00 Indirect Bilirubin 0.4 Aspartate Amino Transf (AST/SGOT) 18 Alanine Aminotransferase (ALT/SGPT) 18 Alkaline Phosphatase 91 Total Protein 7.0 Albumin 3.4 Globulin 3.60 H Albumin/Globulin Ratio 0.94 Bedside Glucose 150 140 Exam/Review of Systems Exam Vitals Vital Signs Date Temp Pulse Resp B/P (MAP) Pulse Ox O2 O2 Flow FiO2 Time Delivery Rate 11/15/18 98.8 79 18 104/62 99 Room Air 14:41 (76) 11/13/18 2.0 02:00 Intake and Output 11/14/18 11/14/18 11/15/18 1515:00 23:00 07:00 IntakeIntake Total 800 ml 290 ml 250 ml OutputOutput Total 820 ml 390 ml 700 ml BalanceBalance -20 ml -100 ml -450 ml Results Results 24hrs Laboratory Tests Test 11/15/18 04:33 11/15/18 08:42 11/15/18 12:35 White Blood Count 6.4 Red Blood Count 3.25 L Hemoglobin 8.4 L Hematocrit 26.8 L Mean Corpuscular Volume 82.5 Mean Corpuscular Hemoglobin 25.8 L Mean Corpuscular Hemoglobin Concent 31.3 L Red Cell Distribution Width 14.0 Platelet Count 220 Mean Platelet Volume 10.3 Immature Granulocytes % 0.200 Neutrophils % 50.2 Lymphocytes % 37.7 Monocytes % 8.8 Eosinophils % 2.8 Basophils % 0.3 Nucleated Red Blood Cells % 0.0 Immature Granulocytes # 0.010 Neutrophils # 3.2 Lymphocytes # 2.4 Monocytes # 0.6 Eosinophils # 0.2 Basophils # 0.0 Nucleated Red Blood Cells # 0.0 Sodium Level 142 Potassium Level 3.7 Chloride Level 109 Carbon Dioxide Level 25 Anion Gap 8 Blood Urea Nitrogen 12 Creatinine 0.62 Est Glomerular Filtrat Rate mL/min > 60 Glucose Level 148 # Calcium Level 8.2 L Total Bilirubin 0.4 Direct Bilirubin 0.00 Indirect Bilirubin 0.4 Aspartate Amino Transf (AST/SGOT) 18 Alanine Aminotransferase (ALT/SGPT) 18 Alkaline Phosphatase 91 Total Protein 7.0 Albumin 3.4 Globulin 3.60 H Albumin/Globulin Ratio 0.94 Bedside Glucose 150 140 Medications Medication Current Medications Acetaminophen/ Hydrocodone Bitart ([place] (5/325)) 1 tab Q4H PRN PO .PAIN 1-5 Last administered on 11/15/18at 07:20; Admin Dose 1 TAB; Start 11/12/18 at 21:30 Ondansetron HCl (Zofran Inj) 4 mg Q6H PRN IV NAUSEA/VOMITING Last administered on 11/14/18at 15:09; Admin Dose 4 MG; Start 11/12/18 at 21:30 Al Hydrox/Mg Hydrox/Simethicone (Mag-Al Plus) 15 ml Q4H PRN PO .CONSTIPATION Last administered on 11/14/18at 17:51; Admin Dose 15 ML; Start 11/12/18 at 21:30 IV Flush (NS 3 ml) 3 ml PER PROTOCOL IV ; Start 11/12/18 at 21:30 Naloxone HCl (Narcan) 0.2 mg Q2M PRN IV RR 8 BREATHS/MIN OR LESS; Start 11/12/18 at 21:30 Hydromorphone HCl (Dilaudid) 1 mg Q3H PRN IV SEVERE PAIN LEVEL 7-10 Last administered on 11/15/18at 11:30; Admin Dose 1 MG; Start 11/13/18 at 20:00 Latanoprost (Xalatan) 1 drop QHS BOTH EYES Last administered on 11/14/18at 21:57; Admin Dose 1 DROP; Start 11/14/18 at 21:00 Pantoprazole (Protonix Tab) 40 mg DAILY@06 PO Last administered on 11/15/18at 07:20; Admin Dose 40 MG; Start 11/15/18 at 06:00 Gabapentin (Neurontin) 400 mg BID PO Last administered on 11/15/18at 08:45; Admin Dose 400 MG; Start 11/14/18 at 15:30 Diagnostic Test (Pha) (Accu-Chek) 1 ea 02 XX ; Start 11/15/18 at 02:00 Insulin Aspart (Novolog Insulin Pen) NOVOLOG *MILD* ALGORI... AC MEALS SC Last administered on 11/15/18at 08:47; Admin Dose 1 UNIT; Start 11/14/18 at 17:05 Miscellaneous Information 1 ea NOTE XX ; Start 11/14/18 at 15:30 Glucose (Glutose) 15 gm Q15M PRN PO DECREASED GLUCOSE; Start 11/14/18 at 15:30 Glucose (Glutose) 22.5 gm Q15M PRN PO DECREASED GLUCOSE; Start 11/14/18 at 15:30 Dextrose (D50w Syringe) 25 ml Q15M PRN IV DECREASED GLUCOSE; Start 11/14/18 at 15:30 Dextrose (D50w Syringe) 50 ml Q15M PRN IV DECREASED GLUCOSE; Start 11/14/18 at 15:30 Glucagon (Glucagen) 1 mg Q15M PRN IM DECREASED GLUCOSE; Start 11/14/18 at 15:30 Glucose (Glutose) 15 gm Q15M PRN BUCCAL DECREASED GLUCOSE; Start 11/14/18 at 15:30 Metformin HCl (Glucophage) 850 mg WITH BREAKFAST DINNE PO ; Start 11/15/18 at 17:55 Miscellaneous Information 50 mg BID PO ; Start 11/15/18 at 11:00; Status UNV Senna (Senokot) 1 tab BID PO Last administered on 11/15/18at 11:38; Admin Dose 1 TAB; Start 11/15/18 at 11:30 Bisacodyl (Dulcolax) 5 mg DAILY PRN PO CONSTIPATION; Start 11/15/18 at 11:30 Losartan Potassium (Cozaar) 25 mg DAILY PO ; Start 11/16/18 at 09:00 Gabapentin (Neurontin) 400 mg TID PO ; Start 11/15/18 at 21:00; Status UNV Dexamethasone (Decadron) 4 mg Q6 IV ; Start 11/15/18 at 18:00 SANJAY LE MD Nov 15, 2018 15:58
[2018-11-15] MEDS: DEXAMETHASONE 4 MG/ML 1 ML INJ IV SCH ×2 (18:56→23:49)
[2018-11-15] MEDS: metFORMIN 850 MG TAB PO SCH (18:56)
[2018-11-15 19:15] VITALS: BP 116/63; PULSE 83; RESP 18
[2018-11-15] MEDS: LATANOPROST 0.005% 2.5 ML OPH BOTH EYES SCH (20:42)
[2018-11-15 23:21] VITALS: BP 115/73; PULSE 82; RESP 18
[2018-11-15 23:55] VITALS: BP 105/52; PULSE 75; RESP 20
[2018-11-16] MEDS: ACCU-CHEK XX SCH (01:49)
[2018-11-16] MEDS: PANTOPRAZOLE (EC) 40 MG TAB PO SCH (05:38)
[2018-11-16] MEDS: DEXAMETHASONE 4 MG/ML 1 ML INJ IV SCH ×4 (05:38→23:47)
[2018-11-16] MEDS: HYDROCODONE/APAP (5/325) TAB PO PRN ×2 (06:04→13:31)
[2018-11-16 07:32] VITALS: BP 117/54; PULSE 63; RESP 18
[2018-11-16] MEDS: metFORMIN 850 MG TAB PO SCH ×2 (08:41→17:34)
[2018-11-16] MEDS: INSULIN ASPART [NOVOLOG] 3 ML PEN SC SCH ×4 (08:41→22:40)
[2018-11-16] MEDS: GABAPENTIN 400 MG CAP PO SCH ×3 (08:42→20:53)
[2018-11-16] MEDS: LOSARTAN 25 MG TAB PO SCH (08:43)
[2018-11-16] MEDS: SENNA TAB PO SCH ×2 (08:43→20:53)
[2018-11-16] MEDS ORDERED: [UNRECOGNIZED DRUG - REMARK] XX SCH (11:00)
--- NOTE | 2018-11-16 11:12 | PN ---
Date/Time of Note Date/Time of Note DATE: 11/16/18 TIME: 11:11 Assessment/Plan VTE Prophylaxis Risk score (from Ns)>0 risk: 7 SCD applied (from Ns): Yes SCD contraindicated: other Pharmacological prophylaxis: other Pharm contraindication: other Lines/Catheters [facility] Saline Lock Urinary Cath still in place: Yes Reason Cath still needed: urinary retention Assessment/Plan Assessment/Plan - Right lower extremity weakness and numbness. - per neurosx - stat lumbar spine CT done - CT- Interval increased in the central and bilateral neural foraminal stenosis at L4-5 when compared with prior studies. - Status post anterior discectomy and interlocking screws with interbody disc spacers at the L2-3 through L5-S1 levels. - Diabetes. -Glycemic control; metformin. Continue sliding scale. - Hypertension. - Cozaar, but will reduce the dose to 25 mg since blood pressure readings are within normal range. - Constipation - bowel regimen - Senokot, Dulcolax p.r.n. Plan of care discussed with Dr Alexander / [facility] staff Result Diagram: 11/15/18 0433 11/15/18 0433 Results 24hrs Laboratory Tests Test 11/15/18 12:35 11/15/18 18:53 11/16/18 01:48 11/16/18 08:40 Bedside Glucose 140 215 254 H 242 H Subjective 24 Hr Interval Summary Eyes: no complaints ENT: no complaints Respiratory: no complaints Cardiovascular: no complaints Gastrointestinal: no complaints Exam/Review of Systems Exam Vitals Vital Signs Date Temp Pulse Resp B/P (MAP) Pulse Ox O2 O2 Flow FiO2 Time Delivery Rate 11/16/18 97.6 63 18 117/54 93 Room Air 07:32 (75) 11/13/18 2.0 02:00 Intake and Output 11/15/18 11/15/18 11/16/18 1515:00 23:00 07:00 IntakeIntake Total 500 ml 740 ml 360 ml OutputOutput Total 85 ml 625 ml 810 ml BalanceBalance 415 ml 115 ml -450 ml Constitutional: alert, well developed Psych: nl mood/affect Head: atraumatic Eyes: nl lids, nl sclera ENMT: nl external ears & nose Neck: non-tender Respiratory: clear to auscultation Cardiovascular: nl pulses, other (s1s2) Gastrointestinal: soft, non-tender Musculoskeletal: nl extremities to inspection Neurological: nl mental status, nl speech Skin: nl turgor Lymph: nontender Results Results 24hrs Laboratory Tests Test 11/15/18 12:35 11/15/18 18:53 11/16/18 01:48 11/16/18 08:40 Bedside Glucose 140 215 254 H 242 H Medications Medication Current Medications Acetaminophen/ Hydrocodone Bitart ([place] (5/325)) 1 tab Q4H PRN PO .PAIN 1-5 Last administered on 11/16/18 06:04; Admin Dose 1 TAB; Start 11/12/18 at 21:30 Ondansetron HCl (Zofran Inj) 4 mg Q6H PRN IV NAUSEA/VOMITING Last administered on 11/14/18 15:09; Admin Dose 4 MG; Start 11/12/18 at 21:30 Al Hydrox/Mg Hydrox/Simethicone (Mag-Al Plus) 15 ml Q4H PRN PO .CONSTIPATION Last administered on 11/14/18 17:51; Admin Dose 15 ML; Start 11/12/18 at 21:30 IV Flush (NS 3 ml) 3 ml PER PROTOCOL IV ; Start 11/12/18 at 21:30 Naloxone HCl (Narcan) 0.2 mg Q2M PRN IV RR 8 BREATHS/MIN OR LESS; Start 11/12/18 at 21:30 Hydromorphone HCl (Dilaudid) 1 mg Q3H PRN IV SEVERE PAIN LEVEL 7-10 Last adm inistered on 11/15/18 16:40; Admin Dose 1 MG; Start 11/13/18 at 20:00 Latanoprost (Xalatan) 1 drop QHS BOTH EYES Last administered on 11/15/18 20:42; Admin Dose 1 DROP; Start 11/14/18 at 21:00 Pantoprazole (Protonix Tab) 40 mg DAILY@06 PO Last administered on 11/16/18 05:38; Admin Dose 40 MG; Start 11/15/18 at 06:00 Diagnostic Test (Pha) (Accu-Chek) 1 ea 02 XX ; Start 11/15/18 at 02:00 Insulin Aspart (Novolog Insulin Pen) NOVOLOG *MILD* ALGORI... AC MEALS SC Last administered on 7/7/19at 08:41; Admin Dose 3 UNIT; Start 11/14/18 at 17:05 Miscellaneous Information 1 ea NOTE XX ; Start 11/14/18 at 15:30 Glucose (Glutose) 15 gm Q15M PRN PO DECREASED GLUCOSE; Start 11/14/18 at 15:30 Glucose (Glutose) 22.5 gm Q15M PRN PO DECREASED GLUCOSE; Start 11/14/18 at 15:30 Dextrose (D50w Syringe) 25 ml Q15M PRN IV DECREASED GLUCOSE; Start 11/14/18 at 15:30 Dextrose (D50w Syringe) 50 ml Q15M PRN IV DECREASED GLUCOSE; Start 11/14/18 at 15:30 Glucagon (Glucagen) 1 mg Q15M PRN IM DECREASED GLUCOSE; Start 11/14/18 at 15:30 Glucose (Glutose) 15 gm Q15M PRN BUCCAL DECREASED GLUCOSE; Start 11/14/18 at 15:30 Metformin HCl (Glucophage) 850 mg WITH BREAKFAST DINNE PO Last administered on 11/16/18at 08:41; Admin Dose 850 MG; Start 11/15/18 at 17:55 Miscellaneous Information 50 mg BID PO ; Start 11/15/18 at 11:00; Status UNV Senna (Senokot) 1 tab BID PO Last administered on 11/16/18at 08:43; Admin Dose 1 TAB; Start 11/15/18 at 11:30 Bisacodyl (Dulcolax) 5 mg DAILY PRN PO CONSTIPATION Last administered on 11/16 08:43; Admin Dose 5 MG; Start 11/15/18 at 11:30 Losartan Potassium (Cozaar) 25 mg DAILY PO Last administered on 11/16/18 08:43; Admin Dose 25 MG; Start 11/16/18 at 09:00 Gabapentin (Neurontin) 400 mg TID PO Last administered on 11/16/18 08:42; Admin Dose 400 MG; Start 11/15/18 at 21:00 Dexamethasone (Decadron) 4 mg Q6 IV Last administered on 11/16/18at 05:38; Admin Dose 4 MG; Start 11/15/18 at 18:00 Miscellaneous Information (*Order Clarification Bulletin) Milnacipran Hcl (Savella) 50 MG: PLE... Q8H XX ; Start 11/16/18 at 11:00 Insulin Human NPH (Humulin N) 4 unit Q6 SC ; Start 11/16/18 at 12:00; Status [place]T TIPTON Nov 16, 2018 11:12
[2018-11-16] MEDS: SAVELLA 50 MG PO SCH ×2 (12:50→20:53)
[2018-11-16] MEDS: NPH, HUMAN INSULIN ISOPHANE 3ML VIAL SC SCH ×3 (12:55→23:52)
[2018-11-16] MEDS: ONDANSETRON 4 MG INJ IV PRN (14:14)
[2018-11-16 14:51] VITALS: BP 118/58; PULSE 81; RESP 18
[2018-11-16 19:15] VITALS: BP 137/70; PULSE 100; RESP 18
[2018-11-16] MEDS: LATANOPROST 0.005% 2.5 ML OPH BOTH EYES SCH (20:54)
[2018-11-16] MEDS ORDERED: INSULIN ASPART [NOVOLOG] 3 ML PEN SC SCH (22:30)
[2018-11-17] MEDS: ONDANSETRON 4 MG INJ IV PRN (00:01)
[2018-11-17] MEDS: ZOLPIDEM 5 MG TAB PO PRN (00:46)
[2018-11-17] MEDS: ACCU-CHEK XX SCH (02:00)
[2018-11-17 02:17] VITALS: BP 110/58; PULSE 78; RESP 18
[2018-11-17] MEDS: DEXAMETHASONE 4 MG/ML 1 ML INJ IV SCH ×3 (06:00→17:45)
[2018-11-17] MEDS: NPH, HUMAN INSULIN ISOPHANE 3ML VIAL SC SCH ×3 (06:03→17:50)
[2018-11-17] MEDS: PANTOPRAZOLE (EC) 40 MG TAB PO SCH (06:04)
[2018-11-17] MEDS ORDERED: INSULIN ASPART [NOVOLOG] 3 ML PEN SC SCH ×2 (07:20→07:50)
[2018-11-17 07:23] VITALS: BP 119/68; PULSE 82; RESP 19
[2018-11-17] MEDS: GABAPENTIN 400 MG CAP PO SCH ×3 (08:49→21:30)
[2018-11-17] MEDS: SENNA TAB PO SCH ×3 (08:49→21:30)
[2018-11-17] MEDS: metFORMIN 850 MG TAB PO SCH ×2 (08:49→17:45)
[2018-11-17] MEDS: SAVELLA 50 MG PO SCH ×2 (08:49→21:31)
[2018-11-17] MEDS: LOSARTAN 25 MG TAB PO SCH (08:49)
[2018-11-17] MEDS: INSULIN ASPART [NOVOLOG] 3 ML PEN SC SCH ×4 (08:52→21:30)
[2018-11-17] MEDS: HYDROmorphONE 1 MG/ML SYG IV PRN ×3 (12:27→21:41)
--- NOTE | 2018-11-17 12:56 | PN ---
Date/Time of Note Date/Time of Note DATE: 11/17/18 TIME: 12:52 Assessment/Plan VTE Prophylaxis Risk score (from Ns)>0 risk: 6 [place] [facility] [place]CD contraindicated: low risk/ambulating Pharmacological prophylaxis: NA/contraindicated Pharm contraindication: low risk/ambulating Lines/Catheters IV Catheter Type (from [facility]): Saline Lock [place] line still needed: No Urinary Cath still in place: No Assessment/Plan Assessment/Plan neurosurgery s/p L2-S1 ISF removal with right L5-S1 decompression improving with decadron able to ambulate to RN station today surgical site:CDI Plan dc marcela drain and apply luiza x3 (will remove at 2 week follow up) pt/ot dc planning in am if medically stable overnight wean decadron upon dc (4mg po bid x 2 days, then 3mg po bid x 2 days , then 1mg po bid x 2 days, then 1mg po qday x 2 days then dc ) follow up with me in 2 days Result Diagram: 11/17/18 0445 11/17/18 0445 Results 24hrs Laboratory Tests Test 11/16/18 17:34 11/16/18 20:57 11/16/18 22:36 11/16/18 23:40 Bedside Glucose 236 H 269 H 261 H 250 H Test 11/17/18 02:07 11/17/18 04:45 11/17/18 06:02 11/17/18 08:45 Bedside Glucose 216 262 H 244 H White Blood Count 9.2 # Red Blood Count 3.42 L Hemoglobin 8.8 L Hematocrit 27.6 L Mean Corpuscular Volume 80.7 L Mean Corpuscular 25.7 L Hemoglobin Mean Corpuscular 31.9 L Hemoglobin Concent Red Cell Distribution 14.1 Width Platelet Count 321 # Mean Platelet Volume 10.5 H Immature Granulocytes % 0.700 H Neutrophils % 86.2 H Lymphocytes % 10.3 L Monocytes % 2.8 Eosinophils % 0.0 Basophils % 0.0 Nucleated Red Blood 0.0 Cells % Immature Granulocytes # 0.060 H Neutrophils # 7.9 H Lymphocytes # 1.0 Monocytes # 0.3 Eosinophils # 0.0 Basophils # 0.0 Nucleated Red Blood 0.0 Cells # Sodium Level 140 Potassium Level 4.3 Chloride Level 106 Carbon Dioxide Level 26 Anion Gap 8 Blood Urea Nitrogen 31 H Creatinine 0.74 Est Glomerular Filtrat > 60 Rate mL/min Glucose Level 263 H Calcium Level 9.5 Subjective 24 Hr Interval Summary Free Text/Dictation Neurosurgery Progress note ambulating well with pt/ot able to ambulate from room to RN station increasing strength with improving RLE radic surgical site:CDI Exam/Review of Systems Exam Vitals Vital Signs Date Temp Pulse Resp B/P (MAP) Pulse Ox O2 O2 Flow FiO2 Time Delivery Rate 11/17/18 98.2 82 19 119/68 98 07:23 (85) 11/16/18 Room Air 14:51 Intake and Output 11/16/18 11/16/18 11/17/18 1515:00 23:00 07:00 IntakeIntake Total 200 ml 440 ml OutputOutput Total 40 ml 485 ml 80 ml BalanceBalance 160 ml -45 ml -80 ml Neurological: other (MS: AAOX4 CN: PERRL M: FC x 4 , increasing strength to right DF/PF RLE radic improving ) Results Results 24hrs Laboratory Tests Test 11/16/18 17:34 11/16/18 20:57 11/16/18 22:36 11/16/18 23:40 Bedside Glucose 236 H 269 H 261 H 250 H Test 11/17/18 02:07 11/17/18 04:45 11/17/18 06:02 11/17/18 08:45 Bedside Glucose 216 262 H 244 H White Blood Count 9.2 # Red Blood Count 3.42 L Hemoglobin 8.8 L Hematocrit 27.6 L Mean Corpuscular Volume 80.7 L Mean Corpuscular 25.7 L Hemoglobin Mean Corpuscular 31.9 L Hemoglobin Concent Red Cell Distribution 14.1 Width Platelet Count 321 # Mean Platelet Volume 10.5 H Immature Granulocytes % 0.700 H Neutrophils % 86.2 H Lymphocytes % 10.3 L Monocytes % 2.8 Eosinophils % 0.0 Basophils % 0.0 Nucleated Red Blood 0.0 Cells % Immature Granulocytes # 0.060 H Neutrophils # 7.9 H Lymphocytes # 1.0 Monocytes # 0.3 Eosinophils # 0.0 Basophils # 0.0 Nucleated Red Blood 0.0 Cells # Sodium Level 140 Potassium Level 4.3 Chloride Level 106 Carbon Dioxide Level 26 Anion Gap 8 Blood Urea Nitrogen 31 H Creatinine 0.74 Est Glomerular Filtrat > 60 Rate mL/min Glucose Level 263 H Calcium Level 9.5 Medications Medication Current Medications Acetaminophen/ Hydrocodone Bitart ([place] (5/325)) 1 tab Q4H PRN PO .PAIN 1-5 Last administered on 11/16/18 13:31; Admin Dose 1 TAB; Start 11/12/18 at 21:30 Ondansetron HCl (Zofran Inj) 4 mg Q6H PRN IV NAUSEA/VOMITING Last administered on 11/17/18 00:01; Admin Dose 4 MG; Start 11/12/18 at 21:30 Al Hydrox/Mg Hydrox/Simethicone (Mag-Al Plus) 15 ml Q4H PRN PO .CONSTIPATION Last administered on 11/14/18 17:51; Admin Dose 15 ML; Start 11/12/18 at 21:30 IV Flush (NS 3 ml) 3 ml PER PROTOCOL IV ; Start 11/12/18 at 21:30 Naloxone HCl (Narcan) 0.2 mg Q2M PRN IV RR 8 BREATHS/MIN OR LESS; Start 11/12/18 at 21:30 Hydromorphone HCl (Dilaudid) 1 mg Q3H PRN IV SEVERE PAIN LEVEL 7-10 Last administered on 11/17/18 12:27; Admin Dose 1 MG; Start 11/13/18 at 20:00 Latanoprost (Xalatan) 1 drop QHS BOTH EYES Last administered on 11/16/18 20:54; Admin Dose 1 DROP; Start 11/14/18 at 21:00 Pantoprazole (Protonix Tab) 40 mg DAILY@06 PO Last administered on 11/17/18 06:04; Admin Dose 40 MG; Start 11/15/18 at 06:00 Diagnostic Test (Pha) (Accu-Chek) 1 ea 02 XX ; Start 11/15/18 at 02:00 Miscellaneous Information 1 ea NOTE XX ; Start 11/14/18 at 15:30 Glucose (Glutose) 15 gm Q15M PRN PO DECREASED GLUCOSE; Start 11/14/18 at 15:30 Glucose (Glutose) 22.5 gm Q15M PRN PO DECREASED GLUCOSE; Start 11/14/18 at 15:30 Dextrose (D50w Syringe) 25 ml Q15M PRN IV DECREASED GLUCOSE; Start 11/14/18 at 15:30 Dextrose (D50w Syringe) 50 ml Q15M PRN IV DECREASED GLUCOSE; Start 11/14/18 at 15:30 Glucagon (Glucagen) 1 mg Q15M PRN IM DECREASED GLUCOSE; Start 11/14/18 at 15:30 Glucose (Glutose) 15 gm Q15M PRN BUCCAL DECREASED GLUCOSE; Start 11/14/18 at 15:30 Metformin HCl (Glucophage) 850 mg WITH BREAKFAST DINNE PO Last administered on 11/17/18 08:49; Admin Dose 850 MG; Start 11/15/18 at 17:55 Senna (Senokot) 1 tab BID PO Last administered on 11/17/18 08:49; Admin Dose 1 TAB; Start 11/15/18 at 11:30 Bisacodyl (Dulcolax) 5 mg DAILY PRN PO CONSTIPATION Last administered on 11/16/18 08:43; Admin Dose 5 MG; Start 11/15/18 at 11:30 Losartan Potassium (Cozaar) 25 mg DAILY PO Last administered on 11/17/18 08:49; Admin Dose 25 MG; Start 11/16/18 at 09:00 Gabapentin (Neurontin) 400 mg TID PO Last administered on 11/17/18 08:49; Admin Dose 400 MG; Start 11/15/18 at 21:00 Dexamethasone (Decadron) 4 mg Q6 IV Last administered on 11/17/18 06:00; Admin Dose 4 MG; Start 11/15/18 at 18:00 Insulin Human NPH (Humulin N) 4 unit Q6 SC Last administered on 11/17/18 06:03; Admin Dose 4 UNIT; Start 11/16/18 at 12:00 Patient Own Medication BID PO Last administered on 11/17/18 08:49; Admin Dose 1 EA; Start 11/16/18 at 13:00 Insulin Aspart (Novolog Insulin Pen) NOVOLOG *MILD* ALGORITHM WITH MEALS BEDTIME SC Last administered on 11/17/18 08:52; Admin Dose 3 UNIT; Start 11/16/18 at 22:30 Zolpidem Tartrate (Ambien) 10 mg HS PRN PO INSOMNIA Last administered on 11/17/18 00:46; Admin Dose 10 MG; Start 11/17/18 at 01:00 SANJAY LE MD Nov 17, 2018 12:56
--- NOTE | 2018-11-17 16:08 | PN ---
Date/Time of Note Date/Time of Note DATE: 11/17/18 TIME: 16:07 Assessment/Plan VTE Prophylaxis Risk score (from Ns)>0 risk: 6 SCD applied (from Ns): Yes Pharmacological prophylaxis: NA/contraindicated Pharm contraindication: surgical contra Lines/Catheters IV Catheter Type (from Nrsg): Saline Lock Urinary Cath still in place: No Assessment/Plan Hospital Course Drain and [place] DC'd continue to monitor if patient is able to void will start Urecholine, continue physical therapy. Discussed with patient and patient's daughter at the bedside. Assessment/Plan -S/p posterior L2-S1 ISF removal with right L5-S1 decompression with shaving of S1 screw by Dr. Osuna. -Right lower extremities numbness and weakness continue Decadron, improved, con tinue physical therapy -Diabetes, continue NPH, start Lantus for better glycemic control -Hypertension, continue Cozaar Further recommendations based on clinical course. Plan of care discussed with Dr. Alexander. Result Diagram: 11/17/18 0445 11/17/18 0445 Results 24hrs Laboratory Tests Test 11/16/18 17:34 11/16/18 20:57 11/16/18 22:36 11/16/18 23:40 Bedside Glucose 236 H 269 H 261 H 250 H Test 11/17/18 02:07 11/17/18 04:45 11/17/18 06:02 11/17/18 08:45 Bedside Glucose 216 262 H 244 H White Blood Count 9.2 # Red Blood Count 3.42 L Hemoglobin 8.8 L Hematocrit 27.6 L Mean Corpuscular Volume 80.7 L Mean Corpuscular 25.7 L Hemoglobin Mean Corpuscular 31.9 L Hemoglobin Concent Red Cell Distribution 14.1 Width Platelet Count 321 # Mean Platelet Volume 10.5 H Immature Granulocytes % 0.700 H Neutrophils % 86.2 H Lymphocytes % 10.3 L Monocytes % 2.8 Eosinophils % 0.0 Basophils % 0.0 Nucleated Red Blood 0.0 Cells % Immature Granulocytes # 0.060 H Neutrophils # 7.9 H Lymphocytes # 1.0 Monocytes # 0.3 Eosinophils # 0.0 Basophils # 0.0 Nucleated Red Blood 0.0 Cells # Sodium Level 140 Potassium Level 4.3 Chloride Level 106 Carbon Dioxide Level 26 Anion Gap 8 Blood Urea Nitrogen 31 H Creatinine 0.74 Est Glomerular Filtrat > 60 Rate mL/min Glucose Level 263 H Calcium Level 9.5 Test 11/17/18 12:59 Bedside Glucose 225 H Exam/Review of Systems Exam Vitals Vital Signs Date Temp Pulse Resp B/P (MAP) Pulse Ox O2 O2 Flow FiO2 Time Delivery Rate 11/17/18 98.2 82 19 119/68 98 07:23 (85) 11/16/18 Room Air 14:51 Intake and Output 11/16/18 11/16/18 11/17/18 1515:00 23:00 07:00 IntakeIntake Total 200 ml 440 ml OutputOutput Total 40 ml 485 ml 80 ml BalanceBalance 160 ml -45 ml -80 ml Constitutional: alert, oriented Head: normocephalic Neck: supple Respiratory: clear to auscultation Cardiovascular: nl pulses Gastrointestinal: soft, non-tender Musculoskeletal: other (Status post surgery) Extremities: normal pulses Neurological: nl mental status Results Results 24hrs Laboratory Tests Test 11/16/18 17:34 11/16/18 20:57 11/16/18 22:36 11/16/18 23:40 Bedside Glucose 236 H 269 H 261 H 250 H Test 11/17/18 02:07 11/17/18 04:45 11/17/18 06:02 11/17/18 08:45 Bedside Glucose 216 262 H 244 H White Blood Count 9.2 # Red Blood Count 3.42 L Hemoglobin 8.8 L Hematocrit 27.6 L Mean Corpuscular Volume 80.7 L Mean Corpuscular 25.7 L Hemoglobin Mean Corpuscular 31.9 L Hemoglobin Concent Red Cell Distribution 14.1 Width Platelet Count 321 # Mean Platelet Volume 10.5 H Immature Granulocytes % 0.700 H Neutrophils % 86.2 H Lymphocytes % 10.3 L Monocytes % 2.8 Eosinophils % 0.0 Basophils % 0.0 Nucleated Red Blood 0.0 Cells % Immature Granulocytes # 0.060 H Neutrophils # 7.9 H Lymphocytes # 1.0 Monocytes # 0.3 Eosinophils # 0.0 Basophils # 0.0 Nucleated Red Blood 0.0 Cells # Sodium Level 140 Potassium Level 4.3 Chloride Level 106 Carbon Dioxide Level 26 Anion Gap 8 Blood Urea Nitrogen 31 H Creatinine 0.74 Est Glomerular Filtrat > 60 Rate mL/min Glucose Level 263 H Calcium Level 9.5 Test 11/17/18 12:59 Bedside Glucose 225 H Medications Medication Current Medications Acetaminophen/ Hydrocodone Bitart ([place] (5/325)) 1 tab Q4H PRN PO .PAIN 1-5 Last administered on 11/16/18 13:31; Admin Dose 1 TAB; Start 11/12/18 at 21:30 Ondansetron HCl (Zofran Inj) 4 mg Q6H PRN IV NAUSEA/VOMITING Last administered on 11/17/18 00:01; Admin Dose 4 MG; Start 11/12/18 at 21:30 Al Hydrox/Mg Hydrox/Simethicone (Mag-Al Plus) 15 ml Q4H PRN PO .CONSTIPATION Last administered on 11/14/18 17:51; Admin Dose 15 ML; Start 11/12/18 at 21:30 IV Flush (NS 3 ml) 3 ml PER PROTOCOL IV ; Start 11/12/18 at 21:30 Naloxone HCl (Narcan) 0.2 mg Q2M PRN IV RR 8 BREATHS/MIN OR LESS; Start 11/12/18 at 21:30 Hydromorphone HCl (Dilaudid) 1 mg Q3H PRN IV SEVERE PAIN LEVEL 7-10 Last adm inistered on 11/17/18 16:03; Admin Dose 1 MG; Start 11/13/18 at 20:00 Latanoprost (Xalatan) 1 drop QHS BOTH EYES Last administered on 11/16/18 20:54; Admin Dose 1 DROP; Start 11/14/18 at 21:00 Pantoprazole (Protonix Tab) 40 mg DAILY@06 PO Last administered on 11/17/18 06:04; Admin Dose 40 MG; Start 11/15/18 at 06:00 Diagnostic Test (Pha) (Accu-Chek) 1 ea 02 XX ; Start 11/15/18 at 02:00 Miscellaneous Information 1 ea NOTE XX ; Start 11/14/18 at 15:30 Glucose (Glutose) 15 gm Q15M PRN PO DECREASED GLUCOSE; Start 11/14/18 at 15:30 Glucose (Glutose) 22.5 gm Q15M PRN PO DECREASED GLUCOSE; Start 11/14/18 at 15:30 Dextrose (D50w Syringe) 25 ml Q15M PRN IV DECREASED GLUCOSE; Start 11/14/18 at 15:30 Dextrose (D50w Syringe) 50 ml Q15M PRN IV DECREASED GLUCOSE; Start 11/14/18 at 15:30 Glucagon (Glucagen) 1 mg Q15M PRN IM DECREASED GLUCOSE; Start 11/14/18 at 15:30 Glucose (Glutose) 15 gm Q15M PRN BUCCAL DECREASED GLUCOSE; Start 11/14/18 at 15:30 Metformin HCl (Glucophage) 850 mg WITH BREAKFAST DINNE PO Last administered on 11/17/18 08:49; Admin Dose 850 MG; Start 11/15/18 at 17:55 Senna (Senokot) 1 tab BID PO Last administered on 11/17/18 08:49; Admin Dose 1 TAB; Start 11/15/18 at 11:30 Bisacodyl (Dulcolax) 5 mg DAILY PRN PO CONSTIPATION Last administered on 11/16/18 08:43; Admin Dose 5 MG; Start 11/15/18 at 11:30 Losartan Potassium (Cozaar) 25 mg DAILY PO Last administered on 11/17/18 08:49; Admin Dose 25 MG; Start 11/16/18 at 09:00 Gabapentin (Neurontin) 400 mg TID PO Last administered on 11/17/18 13:09; Admin Dose 400 MG; Start 11/15/18 at 21:00 Dexamethasone (Decadron) 4 mg Q6 IV Last administered on 11/17/18 13:08; Admin Dose 4 MG; Start 11/15/18 at 18:00 Insulin Human NPH (Humulin N) 4 unit Q6 SC Last administered on 11/17/18 13:08; Admin Dose 4 UNIT; Start 11/16/18 at 12:00 Patient Own Medication BID PO Last administered on 11/17/18 08:49; Admin Dose 1 EA; Start 11/16/18 at 13:00 Insulin Aspart (Novolog Insulin Pen) NOVOLOG *MILD* ALGORITHM WITH MEALS BEDTIME SC Last administered on 11/17/18 13:07; Admin Dose 3 UNIT; Start 11/16/18 at 22:30 Zolpidem Tartrate (Ambien) 10 mg HS PRN PO INSOMNIA Last administered on 11/17/18 00:46; Admin Dose 10 MG; Start 11/17/18 at 01:00 ALISIA DRIVER Nov 17, 2018 16:08
[2018-11-17] MEDS ORDERED: BETHANECHOL 10 MG TAB PO PRN (16:30)
[2018-11-17] MEDS ORDERED: NPH, HUMAN INSULIN ISOPHANE 3ML VIAL SC SCH (18:00)
[2018-11-17] MEDS ORDERED: DEXAMETHASONE 4 MG/ML 1 ML INJ IV SCH (18:00)
[2018-11-17 20:16] VITALS: BP 101/51; PULSE 74; RESP 18
[2018-11-17] MEDS: LATANOPROST 0.005% 2.5 ML OPH BOTH EYES SCH (21:30)
[2018-11-17] MEDS ORDERED: KETOROLAC 30 MG INJ IV STA (21:59)
[2018-11-18] MEDS: NPH, HUMAN INSULIN ISOPHANE 3ML VIAL SC SCH ×4 (01:15→17:48)
[2018-11-18] MEDS: DEXAMETHASONE 4 MG/ML 1 ML INJ IV SCH ×4 (01:15→17:45)
[2018-11-18] MEDS: ZOLPIDEM 5 MG TAB PO PRN ×2 (01:16→21:36)
[2018-11-18 01:26] VITALS: BP 102/53; PULSE 67; RESP 18
[2018-11-18] MEDS: ACCU-CHEK XX SCH (02:00)
[2018-11-18] MEDS: PANTOPRAZOLE (EC) 40 MG TAB PO SCH (06:32)
[2018-11-18 08:15] VITALS: BP 119/56; PULSE 63; RESP 18
[2018-11-18] MEDS: metFORMIN 850 MG TAB PO SCH ×2 (09:02→17:45)
[2018-11-18] MEDS: GABAPENTIN 400 MG CAP PO SCH ×3 (09:02→21:37)
[2018-11-18] MEDS: LOSARTAN 25 MG TAB PO SCH (09:02)
[2018-11-18] MEDS: SENNA TAB PO SCH ×2 (09:02→21:00)
[2018-11-18] MEDS: SAVELLA 50 MG PO SCH ×2 (09:02→21:38)
[2018-11-18] MEDS: INSULIN GLARGINE [LANTus] (100 UNITS/ML) SYG SC SCH (09:05)
[2018-11-18] MEDS: INSULIN ASPART [NOVOLOG] 3 ML PEN SC SCH ×4 (09:05→21:35)
[2018-11-18 15:29] VITALS: BP 108/51; PULSE 72; RESP 18
--- NOTE | 2018-11-18 16:26 | PN ---
Date/Time of Note Date/Time of Note DATE: 11/18/18 TIME: 16:25 Assessment/Plan VTE Prophylaxis Risk score (from Ns)>0 risk: 3 SCD applied (from Ns): Yes Pharmacological prophylaxis: NA/contraindicated Pharm contraindication: surgical contra Lines/Catheters [facility]from [facility] Saline Lock Urinary Cath still in place: No Assessment/Plan Hospital Course Patient's complaints of severe right eye pain last night status post MRI of the brain, Dr. Rodriguez is asked to see patient in neurology consultation. Patient has blood glucose in 200s range started on Lantus continue NPH with Decadron dose. Will adjust if sugars continues to be elevated. Plan of care discussed with patient and patient daughter at the bedside. Assessment/Plan -S/p posterior L2-S1 ISF removal with right L5-S1 decompression with shaving of S1 screw -Right lower extremities numbness and weakness continue Decadron, improved, continue physical therapy -Continue Lantus and NPH diabetes,. -Hypertension, continue Cozaar. Further recommendations based on clinical course. Plan of care discussed with Dr. Alexander. Result Diagram: 11/17/18 0445 11/17/18 0445 Results 24hrs Laboratory Tests Test 11/17/18 17:32 11/17/18 20:53 11/18/18 01:12 11/18/18 06:31 Bedside Glucose 225 H 278 H 246 H 240 H Test 11/18/18 09:00 11/18/18 12:33 Bedside Glucose 217 314 H Exam/Review of Systems Exam Vitals Vital Signs Date Temp Pulse Resp B/P (MAP) Pulse Ox O2 O2 Flow FiO2 Time Delivery Rate 11/18/18 98.0 63 18 119/56 99 Room Air 08:15 (77) 63 Intake and Output 11/17/18 11/17/18 11/18/18 1414:59 22:59 06:59 IntakeIntake Total 100 ml 50 ml OutputOutput Total 340 ml BalanceBalance -340 ml 100 ml 50 ml Exam Constitutional: alert, oriented Respiratory: clear to auscultation Cardiovascular: nl pulses Gastrointestinal: soft, non-tender Musculoskeletal: other (Status post surgery) Extremities: normal pulses Neurological: nl mental status Results Results 24hrs Laboratory Tests Test 11/17/18 17:32 11/17/18 20:53 11/18/18 01:12 11/18/18 06:31 Bedside Glucose 225 H 278 H 246 H 240 H Test 11/18/18 09:00 11/18/18 12:33 Bedside Glucose 217 314 H Medications Medication Current Medications Acetaminophen/ Hydrocodone Bitart ([place] (5/325)) 1 tab Q4H PRN PO .PAIN 1-5 Last administered on 11/16/18 13:31; Admin Dose 1 TAB; Start 11/12/18 at 21:30 Ondansetron HCl (Zofran Inj) 4 mg Q6H PRN IV NAUSEA/VOMITING Last administered on 11/17/18 00:01; Admin Dose 4 MG; Start 11/12/18 at 21:30 Al Hydrox/Mg Hydrox/Simethicone (Mag-Al Plus) 15 ml Q4H PRN PO .CONSTIPATION Last administered on 11/14/18 17:51; Admin Dose 15 ML; Start 11/12/18 at 21:30 IV Flush (NS 3 ml) 3 ml PER PROTOCOL IV ; Start 11/12/18 at 21:30 Naloxone HCl (Narcan) 0.2 mg Q2M PRN IV RR 8 BREATHS/MIN OR LESS; Start 11/12/18 at 21:30 Hydromorphone HCl (Dilaudid) 1 mg Q3H PRN IV SEVERE PAIN LEVEL 7-10 Last administered on 11/17/18 21:41; Admin Dose 1 MG; Start 11/13/18 at 20:00 Latanoprost (Xalatan) 1 drop QHS BOTH EYES Last administered on 11/17/18 21:30; Admin Dose 1 DROP; Start 11/14/18 at 21:00 Pantoprazole (Protonix Tab) 40 mg DAILY@06 PO Last administered on 11/18/18 06:32; Admin Dose 40 MG; Start 11/15/18 at 06:00 Diagnostic Test (Pha) (Accu-Chek) 1 ea 02 XX ; Start 11/15/18 at 02:00 Miscellaneous Information 1 ea NOTE XX ; Start 11/14/18 at 15:30 Glucose (Glutose) 15 gm Q15M PRN PO DECREASED GLUCOSE; Start 11/14/18 at 15:30 Glucose (Glutose) 22.5 gm Q15M PRN PO DECREASED GLUCOSE; Start 11/14/18 at 15:30 Dextrose (D50w Syringe) 25 ml Q15M PRN IV DECREASED GLUCOSE; Start 11/14/18 at 15:30 Dextrose (D50w Syringe) 50 ml Q15M PRN IV DECREASED GLUCOSE; Start 11/14/18 at 15:30 Glucagon (Glucagen) 1 mg Q15M PRN IM DECREASED GLUCOSE; Start 11/14/18 at 15:30 Glucose (Glutose) 15 gm Q15M PRN BUCCAL DECREASED GLUCOSE; Start 11/14/18 at 15:30 Metformin HCl (Glucophage) 850 mg WITH BREAKFAST DINNE PO Last administered on 11/18/18 09:02; Admin Dose 850 MG; Start 11/15/18 at 17:55 Senna (Senokot) 1 tab BID PO Last administered on 11/18/18 09:02; Admin Dose 1 TAB; Start 11/15/18 at 11:30 Bisacodyl (Dulcolax) 5 mg DAILY PRN PO CONSTIPATION Last administered on 11/16/18 08:43; Admin Dose 5 MG; Start 11/15/18 at 11:30 Losartan Potassium (Cozaar) 25 mg DAILY PO Last administered on 11/18/18 09:02; Admin Dose 25 MG; Start 11/16/18 at 09:00 Gabapentin (Neurontin) 400 mg TID PO Last administered on 11/18/18 12:58; Admin Dose 400 MG; Start 11/15/18 at 21:00 Patient Own Medication BID PO Last administered on 11/18/18 09:02; Admin Dose 1 EA; Start 11/16/18 at 13:00 Insulin Aspart (Novolog Insulin Pen) NOVOLOG *MILD* ALGORITHM WITH MEALS BEDTIME SC Last administered on 11/18/18 12:56; Admin Dose 5 UNIT; Start 11/16/18 at 22:30 Zolpidem Tartrate (Ambien) 10 mg HS PRN PO INSOMNIA Last administered on 11/18/18 01:16; Admin Dose 10 MG; Start 11/17/18 at 01:00 Beth[place]chol Chloride (Urecholine) 10 mg TID PRN PO UNABLE TO VOID Last administered on 11/17/18 16:26; Admin Dose 10 MG; Start 11/17/18 at 16:30 Insulin Glargine (Lantus) 13 units DAILY@0800 SC Last administered on 11/18/18 09:05; Admin Dose 13 UNITS; Start 11/18/18 at 08:00 Dexamethasone (Decadron) 4 mg Q6 IV Last administered on 11/18/18 12:58; Admin Dose 4 MG; Start 11/18/18 at 00:00 Insulin Human NPH (Humulin N) 6 unit Q6 SC Last administered on 11/18/18 12:57; Admin Dose 6 UNIT; Start 11/18/18 at 00:00 ALISIA DRIVER Nov 18, 2018 16:26
[2018-11-18 19:59] VITALS: BP 106/54; PULSE 76; RESP 18
[2018-11-18] MEDS: LATANOPROST 0.005% 2.5 ML OPH BOTH EYES SCH (21:45)
[2018-11-19] MEDS: DEXAMETHASONE 4 MG/ML 1 ML INJ IV SCH ×4 (01:09→17:40)
[2018-11-19] MEDS: NPH, HUMAN INSULIN ISOPHANE 3ML VIAL SC SCH ×4 (01:11→17:40)
[2018-11-19 02:00] VITALS: BP 101/50; PULSE 69; RESP 18
[2018-11-19] MEDS: ACCU-CHEK XX SCH (02:00)
[2018-11-19] MEDS: PANTOPRAZOLE (EC) 40 MG TAB PO SCH (06:43)
[2018-11-19] MEDS: HYDROCODONE/APAP (5/325) TAB PO PRN ×2 (06:43→13:49)
[2018-11-19 08:30] VITALS: BP 127/60; PULSE 68; RESP 18
[2018-11-19] MEDS: GABAPENTIN 400 MG CAP PO SCH ×3 (08:51→20:52)
[2018-11-19] MEDS: SENNA TAB PO SCH ×2 (08:51→20:52)
[2018-11-19] MEDS: LOSARTAN 25 MG TAB PO SCH (08:52)
[2018-11-19] MEDS: metFORMIN 850 MG TAB PO SCH ×2 (08:53→17:40)
[2018-11-19] MEDS: INSULIN ASPART [NOVOLOG] 3 ML PEN SC SCH ×4 (08:56→20:54)
[2018-11-19] MEDS: INSULIN GLARGINE [LANTus] (100 UNITS/ML) SYG SC SCH (08:57)
[2018-11-19] MEDS: SAVELLA 50 MG PO SCH ×2 (08:58→20:57)
[2018-11-19] MEDS: HYDROmorphONE 1 MG/ML SYG IV PRN (10:27)
--- NOTE | 2018-11-19 12:47 | CONSI ---
Assessment/Plan Assessment/Plan Assessment/Plan (Recall) 63 F c/ lumbar radiculopathy and other comorbidities, who is admitted for lumbar surgical decompression on 11/12. Postoperatively, she noted headaches...for which neurology is consulted.. The clinical picture could be consistent w/ cluster headaches; the cluster period appears to have ended.. MRI brain is notable for small vessel ischemic changes, without acute intracranial pathology.. P: High flow O2 acutely, should Sx recur.. Other pain control and medical management per primary To consider ppx Verapamil as an outpatient.. OK to defer further inpatient neurologic investigation Post-op care per neurosurgery Consultation Date/Type/Reason Admit Date/Time Nov 12, 2018 at 13:09 Type of Consult Neurology Reason for Consultation headache Requesting Provider: ALISIA DRIVER Date/Time of Note DATE: 11/19/18 TIME: 12:40 Hx of Present Illness 63 F c/ radiculopathy...admitted for lumbar decompression.. Post-operatively, noted headaches..for which neurology is consulted.. R phuc-orbital, severe pressure, 4-5 minutes at a time, episodic over 24 hrs. Last 2 night ago.. Now s/p MRI brain. No similar headaches previously o/w neg Objective Exam Vitals Vital Signs Date Temp Pulse Resp B/P (MAP) Pulse Ox O2 O2 Flow FiO2 Time Delivery Rate 11/19/18 98.2 68 18 127/60 96 08:30 (82) 11/18/18 Room Air 15:29 Intake and Output 11/18/18 11/18/18 11/19/18 1515:00 23:00 07:00 IntakeIntake Total 600 ml 460 ml 50 ml BalanceBalance 600 ml 460 ml 50 ml Exam PE: Gen Appearance: No Apparent Distress HEENT: Normocephalic Cardiovascular: Regular rate Lungs: Clear bilaterally Abdomen: Soft Extremities: Dry NE: The patient was alert and oriented. Language was normal. Fund of knowledge was normal. Pupils were equal and reactive to light. There was no afferent pupillary defect. Visual spence were normal. Funduscopic examination was limited. Extra-ocular movements were full. Ptosis was absent. There was no nystagmus. Facial sensation was normal. Face was symmetric with normal strength. Hearing was intact. Palate movements were normal. Neck strength was normal. There was normal tongue bulk and speed of movement. Tone was normal. Muscle bulk was normal. I did not see fasciculations. Arms and legs were symmetric. Vibration sensation was reduced distally. Temperature and pinprick sensation was normal. Rapid alternating movements were normal. There was no dysmetria. There was no intention tremor. Gait was deferred due to bedrest. Ardon's sign was absent. Plantar responses were flexor. Results Result Diagram: 11/17/18 0445 11/17/18 0445 Results 24hrs Laboratory Tests Test 11/18/18 17:29 11/18/18 21:29 11/19/18 01:07 11/19/18 06:39 Bedside Glucose 223 H 256 H 179 228 H Test 11/19/18 08:35 11/19/18 11:54 Bedside Glucose 205 270 H Past Medical History Medical History: diabetes, hypertension, other (Ectopic ) Home Meds Reported Medications Milnacipran Hcl (Savella) 50 Mg Tablet, 50 MG PO BID, TAB 11/12/18 Losartan Potassium* (Losartan Potassium*) 50 Mg Tablet, 50 MG PO DAILY, TAB 11/12/18 Gabapentin* (Gabapentin*) 800 Mg Tablet, 800 MG PO DAILY, #90 TAB 11/12/18 Clopidogrel Bisulfate (Clopidogrel) 75 Mg Tablet, 75 MG PO DAILY, #30 TAB 02/28/18 Latanoprost (Latanoprost) 2.5 Ml Drops, 1 DROP BOTH EYES QHS, #1 BOTTLE 02/28/18 Omeprazole* (Omeprazole*) 20 Mg Capsule.dr, 20 MG PO AC BREAKFAST, #30 CAP 02/28/18 Metformin* (Glucophage*) 850 Mg Tablet, 850 MG PO WITH BREAKFAST DINNE, #60 TAB 02/28/18 Discontinued Reported Medications Glucosamine Hcl (Glucosamine Hcl) 1,500 Mg Tablet, 1500 MG PO, TAB 04/10/18 Duloxetine Hcl* (Cymbalta*) 30 Mg Capsule.dr, 30 MG PO DAILY, CAP 04/10/18 Linagliptin (TRADJENTA) 5 Mg Tablet, 5 MG PO DAILY, TAB 02/28/18 Glimepiride* (Glimepiride*) 2 Mg Tablet, 2 MG PO QPM, TAB 02/28/18 Docusate Sodium* (Colace*) 100 Mg Capsule, 100 MG PO DAILY, #30 CAP 02/28/18 Alendronate Sodium* (Fosamax*) 70 Mg Tablet, 70 MG PO Q7D, #4 TAB 02/28/18 Milnacipran Hcl (Savella) 50 Mg Tablet, 50 MG PO BID, TAB 02/28/18 Glimepiride* (Glimepiride*) 4 Mg Tablet, 4 MG PO QAM, TAB 02/28/18 Gabapentin* (Gabapentin*) 800 Mg Tablet, 800 MG PO BID, #90 TAB 02/28/18 Lisinopril* (Lisinopril*) 20 Mg Tablet, 20 MG PO DAILY, #30 TAB 02/28/18 Discontinued Scripts Ondansetron Hcl* (Zofran*) 4 Mg Tablet, 4 MG PO Q6H for NAUSEA AND/OR VOMITING, #20 TAB Prov:CURT HOYOS 04/23/18 Loperamide Hcl* (Imodium*) 2 Mg Capsule, 2 MG PO Q6H PRN for DIARRHEA, #20 CAP MAX 16 mg/day Prov:CURT HOYOS 04/23/18 Metoclopramide Hcl* (Metoclopramide Hcl*) 5 Mg Tablet, 5 MG PO Q6H PRN for NAUSEA AND/OR VOMITING, #20 TAB Prov:CURT HOYOS 04/23/18 Diphenoxylate HCl/Atropine (Diphenoxylate-Atrop 2.5-0.025) 1 Each Tablet, 1 TAB PO Q6 PRN for DIARRHEA, #14 TAB Prov:CURT HOYOS 04/23/18 Medications Current Medications Acetaminophen/ Hydrocodone Bitart ([place] (5/325)) 1 tab Q4H PRN PO .PAIN 1-5 Last administered on 11/19/18 06:43; Admin Dose 1 TAB; Start 11/12/18 at 21:30 Ondansetron HCl (Zofran Inj) 4 mg Q6H PRN IV NAUSEA/VOMITING Last administered on 11/17/18 00:01; Admin Dose 4 MG; Start 11/12/18 at 21:30 Al Hydrox/Mg Hydrox/Simethicone (Mag-Al Plus) 15 ml Q4H PRN PO .CONSTIPATION Last administered on 11/14/18 17:51; Admin Dose 15 ML; Start 11/12/18 at 21:30 IV Flush (NS 3 ml) 3 ml PER PROTOCOL IV ; Start 11/12/18 at 21:30 Naloxone HCl (Narcan) 0.2 mg Q2M PRN IV RR 8 BREATHS/MIN OR LESS; Start 11/12/18 at 21:30 Hydromorphone HCl (Dilaudid) 1 mg Q3H PRN IV SEVERE PAIN LEVEL 7-10 Last administered on 11/19/18at 10:27; Admin Dose 1 MG; Start 11/13/18 at 20:00 Latanoprost (Xalatan) 1 drop QHS BOTH EYES Last administered on 11/18/18at 21:45; Admin Dose 1 DROP; Start 11/14/18 at 21:00 Pantoprazole (Protonix Tab) 40 mg DAILY@06 PO Last administered on 11/19/18at 06:43; Admin Dose 40 MG; Start 11/15/18 at 06:00 Diagnostic Test (Pha) (Accu-Chek) 1 ea 02 XX ; Start 11/15/18 at 02:00 Miscellaneous Information 1 ea NOTE XX ; Start 11/14/18 at 15:30 Glucose (Glutose) 15 gm Q15M PRN PO DECREASED GLUCOSE; Start 11/14/18 at 15:30 Glucose (Glutose) 22.5 gm Q15M PRN PO DECREASED GLUCOSE; Start 11/14/18 at 15:30 Dextrose (D50w Syringe) 25 ml Q15M PRN IV DECREASED GLUCOSE; Start 11/14/18 at 15:30 Dextrose (D50w Syringe) 50 ml Q15M PRN IV DECREASED GLUCOSE; Start 11/14/18 at 15:30 Glucagon (Glucagen) 1 mg Q15M PRN IM DECREASED GLUCOSE; Start 11/14/18 at 15:30 Glucose (Glutose) 15 gm Q15M PRN BUCCAL DECREASED GLUCOSE; Start 11/14/18 at 15:30 Metformin HCl (Glucophage) 850 mg WITH BREAKFAST DINNE PO Last administered on 11/19/18at 08:53; Admin Dose 850 MG; Start 11/15/18 at 17:55 Senna (Senokot) 1 tab BID PO Last administered on 11/19/18at 08:51; Admin Dose 1 TAB; Start 11/15/18 at 11:30 Bisacodyl (Dulcolax) 5 mg DAILY PRN PO CONSTIPATION Last administered on 9at 08:43; Admin Dose 5 MG; Start 11/15/18 at 11:30 Losartan Potassium (Cozaar) 25 mg DAILY PO Last administered on 11/19/18 08:52; Admin Dose 25 MG; Start 11/16/18 at 09:00 Gabapentin (Neurontin) 400 mg TID PO Last administered on 11/19/18 08:51; Admin Dose 400 MG; Start 11/15/18 at 21:00 Patient Own Medication BID PO Last administered on 11/19/18 08:58; Admin Dose 50 EA; Start 11/16/18 at 13:00 Insulin Aspart (Novolog Insulin Pen) NOVOLOG *MILD* ALGORITHM WITH MEALS BEDTIME SC Last administered on 11/19/18 08:56; Admin Dose 2 UNIT; Start 11/16/18 at 22:30 Zolpidem Tartrate (Ambien) 10 mg HS PRN PO INSOMNIA Last administered on 11/18/18 21:36; Admin Dose 10 MG; Start 11/17/18 at 01:00 Bethanechol Chloride (Urecholine) 10 mg TID PRN PO UNABLE TO VOID Last administered on 11/17/18 16:26; Admin Dose 10 MG; Start 11/17/18 at 16:30 Insulin Glargine (Lantus) 13 units DAILY@0800 SC Last administered on 11/19/18 08:57; Admin Dose 13 UNITS; Start 11/18/18 at 08:00 Dexamethasone (Decadron) 4 mg Q6 IV Last administered on 11/19/18 11:56; Admin Dose 4 MG; Start 11/18/18 at 00:00 Insulin Human NPH (Humulin N) 6 unit Q6 SC Last administered on 11/19/18 11:58; Admin Dose 6 UNIT; Start 11/18/18 at 00:00 Allergies: Coded Allergies: No Known Allergy (Unverified , 11/12/18) Past Surgical History Past Surgical Hx: other (Lower back unneaked wound) Social History Alcohol Use: none Smoking Status: Never smoker Drug Use: cocaine MEREDIHT MURPHY Nov 19, 2018 12:47
--- NOTE | 2018-11-19 14:06 | CONS ---
Assessment/Plan Assessment/Plan Hospital Course (Demo Recall) PVCs Preserved left ventricular ejection fraction Status post spinal surgery Diabetes Hypertension Obesity History of TIA Blood pressure trend remains stable Denies any palpitations No new cardiac orders at the current time Consultation Date/Type/Reason Admit Date/Time Nov 12, 2018 at 13:09 Initial Consult Date Type of Consult Cardiology Requesting Provider: ALISIA DRIVER Date/Time of Note DATE: 11/19/18 TIME: 14:05 24 HR Interval Summary Free Text/Dictation No shortness of breath, palpitations, chest pain or dizziness Exam/Review of Systems Vital Signs Vitals Vital Signs Date Temp Pulse Resp B/P (MAP) Pulse Ox O2 O2 Flow FiO2 Time Delivery Rate 11/19/18 98.2 68 18 127/60 96 08:30 (82) 11/18/18 Room Air 15:29 Intake and Output 11/18/18 11/18/18 11/19/18 1515:00 23:00 07:00 IntakeIntake Total 600 ml 460 ml 50 ml BalanceBalance 600 ml 460 ml 50 ml Exam Constitutional: alert, oriented (No apparent distress) Head: normocephalic Respiratory: other (Coarse breath sounds bilaterally, no wheezing) Cardiovascular: regular rate and rhythm (S1-S2 heard) Gastrointestinal: soft, non-tender, bowel sounds Extremities: other (No significant edema) Labs Result Diagram: 11/17/1844411/17/185 Results 24hrs Laboratory Tests Test 11/18/18 17:29 11/18/18 21:29 11/19/18 01:07 11/19/18 06:39 Bedside Glucose 223 H 256 H 179 228 H Test 11/19/18 08:35 11/19/18 11:54 11/19/18 12:44 Bedside Glucose 205 270 H 246 H Medications Medications Current Medications Acetaminophen/ Hydrocodone Bitart ([place] (5/325)) 1 tab Q4H PRN PO .PAIN 1-5 Last administered on 11/19/18at 13:49; Admin Dose 1 TAB; Start 11/12/18 at 21:30 Ondansetron HCl (Zofran Inj) 4 mg Q6H PRN IV NAUSEA/VOMITING Last administered on 11/17/18at 00:01; Admin Dose 4 MG; Start 11/12/18 at 21:30 Al Hydrox/Mg Hydrox/Simethicone (Mag-Al Plus) 15 ml Q4H PRN PO .CONSTIPATION Last administered on 11/14/18at 17:51; Admin Dose 15 ML; Start 11/12/18 at 21:30 IV Flush (NS 3 ml) 3 ml PER PROTOCOL IV ; Start 11/12/18 at 21:30 Naloxone HCl (Narcan) 0.2 mg Q2M PRN IV RR 8 BREATHS/MIN OR LESS; Start 11/12/18 at 21:30 Hydromorphone HCl (Dilaudid) 1 mg Q3H PRN IV SEVERE PAIN LEVEL 7-10 Last administered on 11/19/18at 10:27; Admin Dose 1 MG; Start 11/13/18 at 20:00 Latanoprost (Xalatan) 1 drop QHS BOTH EYES Last administered on 11/18/18at 21:45; Admin Dose 1 DROP; Start 11/14/18 at 21:00 Pantoprazole (Protonix Tab) 40 mg DAILY@06 PO Last administered on 11/19/18at 06:43; Admin Dose 40 MG; Start 11/15/18 at 06:00 Diagnostic Test (Pha) (Accu-Chek) 1 ea 02 XX ; Start 11/15/18 at 02:00 Miscellaneous Information 1 ea NOTE XX ; Start 11/14/18 at 15:30 Glucose (Glutose) 15 gm Q15M PRN PO DECREASED GLUCOSE; Start 11/14/18 at 15:30 Glucose (Glutose) 22.5 gm Q15M PRN PO DECREASED GLUCOSE; Start 11/14/18 at 15:30 Dextrose (D50w Syringe) 25 ml Q15M PRN IV DECREASED GLUCOSE; Start 11/14/18 at 15:30 Dextrose (D50w Syringe) 50 ml Q15M PRN IV DECREASED GLUCOSE; Start 11/14/18 at 15:30 Glucagon (Glucagen) 1 mg Q15M PRN IM DECREASED GLUCOSE; Start 11/14/18 at 15:30 Glucose (Glutose) 15 gm Q15M PRN BUCCAL DECREASED GLUCOSE; Start 11/14/18 at 15:30 Metformin HCl (Glucophage) 850 mg WITH BREAKFAST DINNE PO Last administered on 11/19/18at 08:53; Admin Dose 850 MG; Start 11/15/18 at 17:55 Senna (Senokot) 1 tab BID PO Last administered on 11/19/18 08:51; Admin Dose 1 TAB; Start 11/15/18 at 11:30 Bisacodyl (Dulcolax) 5 mg DAILY PRN PO CONSTIPATION Last administered on 11/16/18 08:43; Admin Dose 5 MG; Start 11/15/18 at 11:30 Losartan Potassium (Cozaar) 25 mg DAILY PO Last administered on 11/19/18 08:52; Admin Dose 25 MG; Start 11/16/18 at 09:00 Gabapentin (Neurontin) 400 mg TID PO Last administered on 11/19/18 13:01; Admin Dose 400 MG; Start 11/15/18 at 21:00 Patient Own Medication BID PO Last administered on 11/19/18 08:58; Admin Dose 50 EA; Start 11/16/18 at 13:00 Insulin Aspart (Novolog Insulin Pen) NOVOLOG *MILD* ALGORITHM WITH MEALS BEDTIME SC Last administered on 11/19/18 13:01; Admin Dose 3 UNIT; Start 11/16/18 at 22:30 Zolpidem Tartrate (Ambien) 10 mg HS PRN PO INSOMNIA Last administered on 11/18/18 21:36; Admin Dose 10 MG; Start 11/17/18 at 01:00 Bethanechol Chloride (Urecholine) 10 mg TID PRN PO UNABLE TO VOID Last administered on 11/17/18 16:26; Admin Dose 10 MG; Start 11/17/18 at 16:30 Insulin Glargine (Lantus) 13 units DAILY@0800 SC Last administered on 11/19/18 08:57; Admin Dose 13 UNITS; Start 11/18/18 at 08:00 Dexamethasone (Decadron) 4 mg Q6 IV Last administered on 11/19/18 11:56; Admin Dose 4 MG; Start 11/18/18 at 00:00 Insulin Human NPH (Humulin N) 6 unit Q6 SC Last administered on 11/19/18 11:58; Admin Dose 6 UNIT; Start 11/18/18 at 00:00 Cole Pressley DO Nov 19, 2018 14:06
[2018-11-19 14:13] VITALS: BP 105/52; PULSE 71; RESP 18
--- NOTE | 2018-11-19 18:15 | PN ---
Date/Time of Note Date/Time of Note DATE: 11/19/18 TIME: 18:11 Assessment/Plan VTE Prophylaxis Risk score (from Nsg)>0 risk: 4 SCD applied (from Nsg): Yes Pharmacological prophylaxis: NA/contraindicated Pharm contraindication: surgical contra Lines/Catheters IV Catheter Type (from Nrsg): [place] Urinary Cath still in place: No Assessment/Plan Hospital Course Denies any headaches, complains of right lower extremity pain continue PT continue Decadron, will adjust Lantus and NPH for better glycemic control. Plan of care discussed with patient and patient daughter at the bedside. Assessment/Plan -S/p posterior L2-S1 ISF removal with right L5-S1 decompression with shaving of S1 screw, continue LSO brace when out of bed, continue PT. -Right lower extremities numbness and weakness continue Decadron, improved, continue physical therapy -Cluster headache, resolved. Dr. Rodriguez, neurology consult is appreciated. -Diabetes, continue Lantus and NPH -Hypertension, continue Cozaar. Further recommendations based on clinical course. Plan of care discussed with Dr. Alexander. Result Diagram: 11/17/18 0445 11/17/18 0445 Results 24hrs Laboratory Tests Test 11/18/18 21:29 11/19/18 01:07 11/19/18 06:39 11/19/18 08:35 Bedside Glucose 256 H 179 228 H 205 Test 11/19/18 11:54 11/19/18 12:44 11/19/18 17:32 Bedside Glucose 270 H 246 H 177 Exam/Review of Systems Exam Vitals Vital Signs Date Temp Pulse Resp B/P (MAP) Pulse Ox O2 O2 Flow FiO2 Time Delivery Rate 11/19/18 97.8 71 18 105/52 98 Room Air 14:13 (69) Intake and Output 11/18/18 11/18/18 11/19/18 1515:00 23:00 07:00 IntakeIntake Total 600 ml 460 ml 50 ml BalanceBalance 600 ml 460 ml 50 ml Exam Constitutional: alert, oriented Respiratory: clear to auscultation Cardiovascular: nl pulses Gastrointestinal: soft, non-tender Musculoskeletal: other (Status post surgery) Extremities: normal pulses Neurological: nl mental status Results Results 24hrs Laboratory Tests Test 11/18/18 21:29 11/19/18 01:07 11/19/18 06:39 11/19/18 08:35 Bedside Glucose 256 H 179 228 H 205 Test 11/19/18 11:54 11/19/18 12:44 11/19/18 17:32 Bedside Glucose 270 H 246 H 177 Medications Medication Current Medications Acetaminophen/ Hydrocodone Bitart ([place] (5/325)) 1 tab Q4H PRN PO .PAIN 1-5 Last administered on 11/19/18 13:49; Admin Dose 1 TAB; Start 11/12/18 at 21:30 Ondansetron HCl (Zofran Inj) 4 mg Q6H PRN IV NAUSEA/VOMITING Last administered on 11/17/18 00:01; Admin Dose 4 MG; Start 11/12/18 at 21:30 Al Hydrox/Mg Hydrox/Simethicone (Mag-Al Plus) 15 ml Q4H PRN PO .CONSTIPATION Last administered on 11/14/18 17:51; Admin Dose 15 ML; Start 11/12/18 at 21:30 IV Flush (NS 3 ml) 3 ml PER PROTOCOL IV ; Start 11/12/18 at 21:30 Naloxone HCl (Narcan) 0.2 mg Q2M PRN IV RR 8 BREATHS/MIN OR LESS; Start 11/12/18 at 21:30 Hydromorphone HCl (Dilaudid) 1 mg Q3H PRN IV SEVERE PAIN LEVEL 7-10 Last administered on 11/19/18at 10:27; Admin Dose 1 MG; Start 11/13/18 at 20:00 Latanoprost (Xalatan) 1 drop QHS BOTH EYES Last administered on 11/18/18at 21:45; Admin Dose 1 DROP; Start 11/14/18 at 21:00 Pantoprazole (Protonix Tab) 40 mg DAILY@06 PO Last administered on 11/19/18at 06:43; Admin Dose 40 MG; Start 11/15/18 at 06:00 Diagnostic Test (Pha) (Accu-Chek) 1 ea 02 XX ; Start 11/15/18 at 02:00 Miscellaneous Information 1 ea NOTE XX ; Start 11/14/18 at 15:30 Glucose (Glutose) 15 gm Q15M PRN PO DECREASED GLUCOSE; Start 11/14/18 at 15:30 Glucose (Glutose) 22.5 gm Q15M PRN PO DECREASED GLUCOSE; Start 11/14/18 at 15:30 Dextrose (D50w Syringe) 25 ml Q15M PRN IV DECREASED GLUCOSE; Start 11/14/18 at 15:30 Dextrose (D50w Syringe) 50 ml Q15M PRN IV DECREASED GLUCOSE; Start 11/14/18 at 15:30 Glucagon (Glucagen) 1 mg Q15M PRN IM DECREASED GLUCOSE; Start 11/14/18 at 15:30 Glucose (Glutose) 15 gm Q15M PRN BUCCAL DECREASED GLUCOSE; Start 11/14/18 at 15:30 Metformin HCl (Glucophage) 850 mg WITH BREAKFAST DINNE PO Last administered on 11/19/18 17:40; Admin Dose 850 MG; Start 11/15/18 at 17:55 Senna (Senokot) 1 tab BID PO Last administered on 11/19/18 08:51; Admin Dose 1 TAB; Start 11/15/18 at 11:30 Bisacodyl (Dulcolax) 5 mg DAILY PRN PO CONSTIPATION Last administered on 11/16/18 08:43; Admin Dose 5 MG; Start 11/15/18 at 11:30 Losartan Potassium (Cozaar) 25 mg DAILY PO Last administered on 11/19/18 08:52; Admin Dose 25 MG; Start 11/16/18 at 09:00 Gabapentin (Neurontin) 400 mg TID PO Last administered on 11/19/18 13:01; Admin Dose 400 MG; Start 11/15/18 at 21:00 Patient Own Medication BID PO Last administered on 11/19/18 08:58; Admin Dose 50 EA; Start 11/16/18 at 13:00 Insulin Aspart (Novolog Insulin Pen) NOVOLOG *MILD* ALGORITHM WITH MEALS BEDTIME SC Last administered on 11/19/18 17:39; Admin Dose 1 UNIT; Start 11/16/18 at 22:30 Zolpidem Tartrate (Ambien) 10 mg HS PRN PO INSOMNIA Last administered on 11/18/18 21:36; Admin Dose 10 MG; Start 11/17/18 at 01:00 Bethanechol Chloride (Urecholine) 10 mg TID PRN PO UNABLE TO VOID Last administered on 11/17/18 16:26; Admin Dose 10 MG; Start 11/17/18 at 16:30 Insulin Glargine (Lantus) 13 units DAILY@0800 SC Last administered on 11/19/18 08:57; Admin Dose 13 UNITS; Start 11/18/18 at 08:00 Dexamethasone (Decadron) 4 mg Q6 IV Last administered on 11/19/18 17:40; Admin Dose 4 MG; Start 11/18/18 at 00:00 Insulin Human NPH (Humulin N) 6 unit Q6 SC Last administered on 11/19/18 17:40; Admin Dose 6 UNIT; Start 11/18/18 at 00:00 ALISIA DRIVER Nov 19, 2018 18:15
[2018-11-19 19:40] VITALS: BP 111/59; PULSE 67; RESP 18
[2018-11-19] MEDS: LATANOPROST 0.005% 2.5 ML OPH BOTH EYES SCH (20:53)
[2018-11-19] MEDS: ZOLPIDEM 5 MG TAB PO PRN (22:26)
[2018-11-20] MEDS: NPH, HUMAN INSULIN ISOPHANE 3ML VIAL SC SCH ×3 (00:49→12:49)
[2018-11-20] MEDS: DEXAMETHASONE 4 MG/ML 1 ML INJ IV SCH ×3 (00:50→12:46)
[2018-11-20] MEDS: ACCU-CHEK XX SCH (01:04)
[2018-11-20 02:48] VITALS: BP 116/61; PULSE 68; RESP 20
[2018-11-20] MEDS: PANTOPRAZOLE (EC) 40 MG TAB PO SCH (05:55)
[2018-11-20 07:46] VITALS: BP 115/56; PULSE 58; RESP 18
[2018-11-20] MEDS ORDERED: INSULIN GLARGINE [LANTus] (100 UNITS/ML) SYG SC SCH (08:00)
[2018-11-20] MEDS: SENNA TAB PO SCH (08:45)
[2018-11-20] MEDS: metFORMIN 850 MG TAB PO SCH (08:45)
[2018-11-20] MEDS: LOSARTAN 25 MG TAB PO SCH (08:45)
[2018-11-20] MEDS: GABAPENTIN 400 MG CAP PO SCH ×2 (08:45→12:46)
[2018-11-20] MEDS: SAVELLA 50 MG PO SCH (08:46)
[2018-11-20] MEDS: INSULIN ASPART [NOVOLOG] 3 ML PEN SC SCH ×2 (08:51→12:48)
[2018-11-20 14:56] VITALS: BP 118/60; PULSE 63; RESP 18
--- NOTE | 2018-11-20 15:29 | CONS ---
Assessment/Plan Assessment/Plan Assessment/Plan (Recall) 63 F c/ lumbar radiculopathy and other comorbidities, who is admitted for lumbar surgical decompression on 11/12. Postoperatively, she noted headaches...for which neurology is consulted.. The clinical picture could be consistent w/ cluster headaches; the cluster period appears to have ended.. MRI brain is notable for small vessel ischemic changes, without acute intracranial pathology.. P: High flow O2 acutely, should Sx recur.. Other pain control and medical management per primary To consider ppx Verapamil as an outpatient.. OK to defer further inpatient neurologic investigation Post-op care per neurosurgery Consultation Date/Type/Reason Admit Date/Time Nov 12, 2018 at 13:09 Type of Consult Neurology Reason for Consultation headache Requesting Provider: ALISIA DRIVER Date/Time of Note DATE: 11/20/18 TIME: 15:29 24 HR Interval Summary Free Text/Dictation Continues acute care Exam/Review of Systems Exam Vitals Vital Signs Date Temp Pulse Resp B/P (MAP) Pulse Ox O2 O2 Flow FiO2 Time Delivery Rate 11/20/18 98.0 63 18 118/60 96 Room Air 14:56 (79) Intake and Output 11/19/18 11/19/18 11/20/18 1515:00 23:00 07:00 IntakeIntake Total 200 ml 800 ml 400 ml BalanceBalance 200 ml 800 ml 400 ml Results Result Diagram: 11/17/18 0445 11/17/18 0445 Results 24hrs Laboratory Tests Test 11/19/18 17:32 11/19/18 20:51 11/20/18 00:47 11/20/18 05:58 Bedside Glucose 177 214 195 188 Test 11/20/18 08:16 11/20/18 12:45 Bedside Glucose 160 233 H Medications Medication Current Medications Acetaminophen/ Hydrocodone Bitart ([place] (5/325)) 1 tab Q4H PRN PO .PAIN 1-5 Last administered on 11/19/18at 13:49; Admin Dose 1 TAB; Start 11/12/18 at 21:30 Ondansetron HCl (Zofran Inj) 4 mg Q6H PRN IV NAUSEA/VOMITING Last administered on 11/17/18at 00:01; Admin Dose 4 MG; Start 11/12/18 at 21:30 Al Hydrox/Mg Hydrox/Simethicone (Mag-Al Plus) 15 ml Q4H PRN PO .CONSTIPATION Last administered on 11/14/18at 17:51; Admin Dose 15 ML; Start 11/12/18 at 21:30 IV Flush (NS 3 ml) 3 ml PER PROTOCOL IV ; Start 11/12/18 at 21:30 Naloxone HCl (Narcan) 0.2 mg Q2M PRN IV RR 8 BREATHS/MIN OR LESS; Start 11/12/18 at 21:30 Hydromorphone HCl (Dilaudid) 1 mg Q3H PRN IV SEVERE PAIN LEVEL 7-10 Last administered on 11/19/18at 10:27; Admin Dose 1 MG; Start 11/13/18 at 20:00 Latanoprost (Xalatan) 1 drop QHS BOTH EYES Last administered on 11/19/18at 20:53; Admin Dose 1 DROP; Start 11/14/18 at 21:00 Pantoprazole (Protonix Tab) 40 mg DAILY@06 PO Last administered on 11/20/18at 05:55; Admin Dose 40 MG; Start 11/15/18 at 06:00 Diagnostic Test (Pha) (Accu-Chek) 1 ea 02 XX ; Start 11/15/18 at 02:00 Miscellaneous Information 1 ea NOTE XX ; Start 11/14/18 at 15:30 Glucose (Glutose) 15 gm Q15M PRN PO DECREASED GLUCOSE; Start 11/14/18 at 15:30 Glucose (Glutose) 22.5 gm Q15M PRN PO DECREASED GLUCOSE; Start 11/14/18 at 15:30 Dextrose (D50w Syringe) 25 ml Q15M PRN IV DECREASED GLUCOSE; Start 11/14/18 at 15:30 Dextrose (D50w Syringe) 50 ml Q15M PRN IV DECREASED GLUCOSE; Start 11/14/18 at 15:30 Glucagon (Glucagen) 1 mg Q15M PRN IM DECREASED GLUCOSE; Start 11/14/18 at 15:30 Glucose (Glutose) 15 gm Q15M PRN BUCCAL DECREASED GLUCOSE; Start 11/14/18 at 15:30 Metformin HCl (Glucophage) 850 mg WITH BREAKFAST DINNE PO Last administered on 11/20/18at 08:45; Admin Dose 850 MG; Start 11/15/18 at 17:55 Senna (Senokot) 1 tab BID PO Last administered on 11/20/18 08:45; Admin Dose 1 TAB; Start 11/15/18 at 11:30 Bisacodyl (Dulcolax) 5 mg DAILY PRN PO CONSTIPATION Last administered on 11/16/18 08:43; Admin Dose 5 MG; Start 11/15/18 at 11:30 Losartan Potassium (Cozaar) 25 mg DAILY PO Last administered on 11/20/18 08:45; Admin Dose 25 MG; Start 11/16/18 at 09:00 Gabapentin (Neurontin) 400 mg TID PO Last administered on 11/20/18 12:46; Admin Dose 400 MG; Start 11/15/18 at 21:00 Patient Own Medication BID PO Last administered on 11/20/18 08:46; Admin Dose 1 EA; Start 11/16/18 at 13:00 Insulin Aspart (Novolog Insulin Pen) NOVOLOG *MILD* ALGORITHM WITH MEALS BEDTIME SC Last administered on 11/20/18 12:48; Admin Dose 3 UNIT; Start 11/16/18 at 22:30 Zolpidem Tartrate (Ambien) 10 mg HS PRN PO INSOMNIA Last administered on 11/19/18 22:26; Admin Dose 10 MG; Start 11/17/18 at 01:00 Bethanechol Chloride (Urecholine) 10 mg TID PRN PO UNABLE TO VOID Last administered on 11/17/18 16:26; Admin Dose 10 MG; Start 11/17/18 at 16:30 Dexamethasone (Decadron) 4 mg Q6 IV Last administered on 11/20/18 12:46; Admin Dose 4 MG; Start 11/18/18 at 00:00 Insulin Glargine (Lantus) 16 units DAILY@0800 SC Last administered on 11/20/18 10:03; Admin Dose 16 UNITS; Start 11/20/18 at 08:00 Insulin Human NPH (Humulin N) 8 unit Q6 SC Last administered on 11/20/18 12:49; Admin Dose 8 UNIT; Start 11/20/18 at 00:00 MEREDITH MURPHY Nov 20, 2018 15:29
[2018-11-20] MEDS ORDERED: HYDR-3601 PO (15:53)
[2018-11-20] MEDS ORDERED: GABA400C14 PO (15:53)
--- NOTE | 2018-11-24 09:17 | DS ---
Date/Time of Note Date/Time of Note DATE: 11/24/18 TIME: 09:12 Discharge Summary Admission/Discharge Info Admit Date/Time Nov 12, 2018 at 13:09 Discharge Date/Time Nov 20, 2018 at 16:30 Patient Condition: Stable Hx of Present Illness This is a 63 years old female with history of hypertensin, Diabetes, RLE radiculopathy with hx of lumbar surgery in the past. Pt underwent L2-S1 ISF Removal and Right L5-S1 decompression / es-laminectomy by Dr Osuna. Hospital Course Pt d/ravinder home with PT services, with prescription for Prednisone at taper doses and [place] for pain. -S/p posterior L2-S1 ISF removal with right L5-S1 decompression with shaving of S1 screw, continue LSO brace when out of bed, continue PT. -Right lower extremities numbness and weakness continue Decadron, improved, continue physical therapy -Cluster headache, resolved. CT brain is negative for any stroke. Dr. Rodriguez, neurology consult is appreciated. -Diabetes, continue Lantus and NPH -Hypertension, continue Cozaar. Plan of care discussed with Dr. Alexander. Home Meds Active Scripts Gabapentin* (Gabapentin*) 400 Mg Capsule, 400 MG PO TID for 30 Days, CAP Prov:ALISIA DRIVER 11/20/18 Hydrocodone Bit-Acetaminophen (Hydrocodone Bit-APAP) 5-325MG Tablet, 1 TAB PO Q4H PRN for .PAIN 1-5, #30 TAB Prov:ALISIA DRIVER 11/20/18 Reported Medications Milnacipran Hcl (Savella) 50 Mg Tablet, 50 MG PO BID, TAB 11/12/18 Losartan Potassium* (Losartan Potassium*) 50 Mg Tablet, 50 MG PO DAILY, TAB 11/12/18 Clopidogrel Bisulfate (Clopidogrel) 75 Mg Tablet, 75 MG PO DAILY, #30 TAB 02/28/18 Latanoprost (Latanoprost) 2.5 Ml Drops, 1 DROP BOTH EYES QHS, #1 BOTTLE 02/28/18 Omeprazole* (Omeprazole*) 20 Mg Capsule., 20 MG PO AC BREAKFAST, #30 CAP 02/28/18 Metformin* (Glucophage*) 850 Mg Tablet, 850 MG PO WITH BREAKFAST DINNE, #60 TAB 02/28/18 Discontinued Reported Medications Gabapentin* (Gabapentin*) 800 Mg Tablet, 800 MG PO DAILY, #90 TAB 11/12/18 Follow-up Plan Discharge home with home health PT services, follow-up with Dr. walters in 2 weeks,LSO brace when out of bed x6 weeks. Primary Care Provider Not On Staff Doctor Time spent on discharge: > 30 minutes ALISIA DRIVER Nov 24, 2018 09:17
== END 2018-11-20 16:30 | disposition home health service (06) | DRG 517 ==
LOC: REC 13:09 → EDSTATUS 15:00 → ICU 21:41 → MS1 11-14 17:54
PROVIDERS: ADMIT Neurological Surgery; ATTEND Neurological Surgery
PROC: 0SP004Z Removal of Internal Fixation Device from Lumbar Vertebral Joint, Open Approach (ICD-10-PCS; 2018-11-12)
PROC: 01NB0ZZ Release Lumbar Nerve, Open Approach (ICD-10-PCS; 2018-11-12)
PROC: 4A11X4G Monitoring of Peripheral Nervous Electrical Activity, Intraoperative, External Approach (ICD-10-PCS; 2018-11-12)
PROC: 0SP304Z Removal of Internal Fixation Device from Lumbosacral Joint, Open Approach (ICD-10-PCS; principal; 2018-11-12 15:00)
DX: T84.228A Displacement of internal fixation device of other bones, initial encounter (principal); T84.89XA Other specified complication of internal orthopedic prosthetic devices, implants and grafts, initial encounter; M47.26 Other spondylosis with radiculopathy, lumbar region; I10 Essential (primary) hypertension; E11.9 Type 2 diabetes mellitus without complications; M48.061 Spinal stenosis, lumbar region without neurogenic claudication; G44.009 Cluster headache syndrome, unspecified, not intractable; I49.3 Ventricular premature depolarization; E66.9 Obesity, unspecified; Z68.31 Body mass index [BMI] 31.0-31.9, adult; K59.00 Constipation, unspecified; Z86.73 Personal history of transient ischemic attack (TIA), and cerebral infarction without residual deficits
CPT/HCPCS: 70551; 72114; 72131; 72158; 80048; 80053; 82962; 83735; 84100; 85014; 85018; 85025; 86850; 86900; 86901; 88300; 88304; 88311; 93005; 97116; 97163; 97530; J0360; J0690; J1100; J1170; J1200; J1815; J1885; J2250; J2270; J2405; J2710; J2795; J3010; J3475; J3480; L0639